=== PATIENT | female | born 1945 | race Caucasian/White ===

== ENCOUNTER → 2024-02-09 09:25 | Outpatient (BNVA) | payer OTHER, SELFPAY | PROVIDERS: PCP Nurse Practitioner Family; Visit Provider Nurse Practitioner Family ==

== ENCOUNTER → 2024-05-25 10:25 | Outpatient (BNVA) | payer OTHER, SELFPAY | PROVIDERS: PCP Nurse Practitioner Family; Visit Provider Nurse Practitioner Family | DX: E11.51 Type 2 diabetes mellitus with diabetic peripheral angiopathy without gangrene (principal); I70.209 Unspecified atherosclerosis of native arteries of extremities, unspecified extremity; E11.59 Type 2 diabetes mellitus with other circulatory complications; I15.2 Hypertension secondary to endocrine disorders; E11.69 Type 2 diabetes mellitus with other specified complication; E78.5 Hyperlipidemia, unspecified; E11.22 Type 2 diabetes mellitus with diabetic chronic kidney disease; I13.0 Hypertensive heart and chronic kidney disease with heart failure and stage 1 through stage 4 chronic kidney disease, or unspecified chronic kidney disease; N18.31 Chronic kidney disease, stage 3a; I50.22 Chronic systolic (congestive) heart failure; I25.10 Atherosclerotic heart disease of native coronary artery without angina pectoris; E11.42 Type 2 diabetes mellitus with diabetic polyneuropathy; Z79.84 Long term (current) use of oral hypoglycemic drugs; Z96.653 Presence of artificial knee joint, bilateral | CPT/HCPCS: 83036; 96127 ==

== ENCOUNTER 2024-06-09 11:32 | Outpatient (AMB) | payer OTHER, SELFPAY ==
[2024-06-09 11:40] VITALS: BP 138/72; PULSE 65; O2SAT 98; BMI 29.8
--- NOTE | 2024-06-09 11:40 | HO.NEPHOV ---
Vital Signs 06/09/24 11:40 Height 5 ft 2 in Weight 163 lb BMI 29.8 BP 138/72 Blood Pressure Location Lt brachial Position Sitting Pulse 65 Pulse Source Pulse Oximeter Pulse Oximetry (%) 98 Oxygen Delivery Method Room Air Intake Visit Reasons: INP: CKD stage 3a /History of urinary calculi Informatics Coordinator Required: No Accompanied by: Self / Same As Patient Allergies No Known Allergies Allergy (Verified 06/16/24 12:53) Do you need a note to return to daycare/school/sports/work: No HPI Comments Details: I had the privilege of seeing Viri in consultation for renal stones, CKD and hypertension. She is 78 years of age and is a diabetic with H/O CAD, peripheral neuropathy, CHF, PAD as well as proteinuria. Her last Echocardiogram showed mild concentric left ventricular hypertrophy, grade 1 mild diastolic dysfunction with impaired LV relaxation, ejection fraction 55-60% & mild mitral regurgitation. She is compliant of all of her medications. Her blood sugars are averaging around 130 mg/dL. Her last A1c was 6.6%. She denies any hyper or hypoglycemia and denies any urinary complaints. She has renal stones Her BP is close to goal . She denies any chest pain, shortness of breath and does not have any edema in bilateral lower extremities. Her last serum creatinine was 1.17 [facility] Medical History (Updated 07/19/24 @ 20:55 by Shailesh Tirado MD) Diabetes mellitus type 2 with atherosclerosis of arteries of extremities Hypertension complicating diabetes Hyperlipidemia associated with type 2 diabetes mellitus Rheumatic fever PVD (peripheral vascular disease) CKD (chronic kidney disease) stage 3, GFR 30-59 ml/min CHF (congestive heart failure) CAD (coronary artery disease) Diabetic peripheral neuropathy BMI 30.0-30.9,adult Obesity, Class I, BMI 30-34.9 Hx of renal calculi Hypertension Surgical History (Updated 06/16/24 @ 12:53 by Juju Ventura) History of knee replacement Social History (System 06/16/24 @ 12:53 by Juju Ventura) Housing: Apartment Patient Tobacco Use Status: Never used Tobacco e-Cigarette/Vaping Use: Never Used Second Hand Smoke Exposure: No service: No Current occupational status: retired Cognitive needs: No Hearing needs: No Vision needs: Yes Review of Systems Const All systems reviewed & are unremarkable except as noted in HPI and below Physical Exam Vital Signs: Last Vital Signs Pulse 65 06/09/24 11:40 BP 138/72 06/09/24 11:40 Pulse Ox 98 06/09/24 11:40 Oxygen Delivery Method Room Air 06/09/24 11:40 BMI result Body Mass Index 29.8 Const General: comfortable and no acute distress Orientation/consciousness: patient oriented x3 HEENT Head: Yes normocephalic Mouth: Normal oral and palatal mucosa present Eyes EOM: EOMs intact bilaterally Neck Neck: Yes supple Resp Auscultation: clear to auscultation bilaterally Cardio Jugular venous distension: no JVD Rate: regular rate GI Palpation (GI): Soft to palpation Auscultation: normal bowel sounds General: Yes no CVA tenderness Back/Spine/Pelvis Back: no CVA tenderness Skin General skin exam: no rashes or lesions noted Neuro General: patient oriented x3 and moves all extremities Extrem General: Yes no pedal edema Results Reviewed Nephrology Results: Sodium 142 mmol/L (135-145) 04/28/24 Potassium 4.8 mmol/L (3.3-5.1) 04/28/24 Chloride 113 mmol/L (96-108) H 04/28/24 Carbon Dioxide 22 mmol/L (22-29) 04/28/24 BUN 23 mg/dL (9-16) H 04/28/24 Creatinine 1.17 mg/dL (0.5-1.4) 04/28/24 Calcium 9.1 mg/dL (8.4-10.2) 04/28/24 Urine Creatinine 379.74 mg/dL 04/28/24 Assessment & Plan Assessment & Plan (1) Hypertension: Code(s): I10 - Essential (primary) hypertension Category: Medical Qualifiers: Hypertension type: primary hypertension Qualified Code(s): I10 - Essential (primary) hypertension (2) Hx of renal calculi: Code(s): Z87.442 - Personal history of urinary calculi Category: Medical (3) CKD (chronic kidney disease) stage 3, GFR 30-59 ml/min: Code(s): N18.30 - Chronic kidney disease, stage 3 unspecified Category: Medical Qualifiers: Chronic kidney disease stage 3 subtype: stage 3a (GFR 45-59) Qualified Code(s): N18.31 - Chronic kidney disease, stage 3a (4) PVD (peripheral vascular disease): Code(s): I73.9 - Peripheral vascular disease, unspecified Category: Medical Plan 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 She has proteinuria. She is on ACEI. She has renal calculi. Sha may need addition of low dose HCTZ which should help with her edema issues intermittently, BP as well as renal calculi. I have ordered urine studies including 24 hour urine for protein, creatinine clearance in addition to blood work and Doppler of renal arteries. She is a great candidate for SGLT 2i. Further management is pending evolving data. Answered all questions Orders: Orders Creatinine Clearance Urine 24U 3 Months Z87.442 - Personal history of urinary calculi, N18.31 - Chronic kidney disease, stage 3a, I10 - Essential (primary) hypertension Parathyroid Hormone Intact 3 Months Z87.442 - Personal history of urinary calculi, N18.31 - Chronic kidney disease, stage 3a, I10 - Essential (primary) hypertension Calcium 3 Months Z87.442 - Personal history of urinary calculi, N18.31 - Chronic kidney disease, stage 3a, I10 - Essential (primary) hypertension Vitamin D 25-OH Total 3 Months Z87.442 - Personal history of urinary calculi, N18.31 - Chronic kidney disease, stage 3a, I10 - Essential (primary) hypertension Immunofixation Pnl, Serum 3 Months Z87.442 - Personal history of urinary calculi, N18.31 - Chronic kidney disease, stage 3a, I10 - Essential (primary) hypertension Creatinine 3 Months Z87.442 - Personal history of urinary calculi, N18.31 - Chronic kidney disease, stage 3a, I10 - Essential (primary) hypertension Blood Urea Nitrogen 3 Months Z87.442 - Personal history of urinary calculi, N18.31 - Chronic kidney disease, stage 3a, I10 - Essential (primary) hypertension Electrolytes 3 Months Z87.442 - Personal history of urinary calculi, N18.31 - Chronic kidney disease, stage 3a, I10 - Essential (primary) hypertension Protein, 24 Hr Urine Group 3 Months Z87.442 - Personal history of urinary calculi, N18.31 - Chronic kidney disease, stage 3a, I10 - Essential (primary) hypertension Phosphorus 3 Months Z87.442 - Personal history of urinary calculi, N18.31 - Chronic kidney disease, stage 3a, I10 - Essential (primary) hypertension Immunofixation, Random Urine 3 Months Z87.442 - Personal history of urinary calculi, N18.31 - Chronic kidney disease, stage 3a, I10 - Essential (primary) hypertension US renal doppler 1 Month I10 - Essential (primary) hypertension, Z87.442 - Personal history of urinary calculi, N18.31 - Chronic kidney disease, stage 3a Coding Level of Care Code New Pt Level 4 (50815) Diagnoses Primary hypertension I10 Hypertension type: primary hypertension Hx of renal calculi Z87.442 Stage 3a chronic kidney disease N18.31 Chronic kidney disease stage 3 subtype: stage 3a (GFR 45-59) PVD (peripheral vascular disease) I73.9
--- OUTSIDE RECORDS SUMMARY | 2024-06-09 14:32 | XMS_ITS | Clinical Summary ---
Author Organization [facility] Address [address] [place] [phone] Phone Care Team Providers Care Bss Solution Architect Name Role Phone Se Ely Primary Care Provider [phone] Allergies No known active allergies Medications losartan (COZAAR) 25 mg tablet Take 1 tablet (25 mg total) by mouth 1 (one) time each day. 3 Active furosemide (LASIX) 40 mg tablet Take 1 tablet (40 mg total) by mouth 1 (one) time each day. 2 Active carvediloL (COREG) 6.25 mg tablet Take 1 tablet (6.25 mg total) by mouth 2 (two) times a day with meals. 2 Active finerenone (Kerendia) 10 mg tablet Take 1 tablet by mouth 1 (one) time each day. 3 Active metFORMIN (GLUCOPHAGE) 500 mg tablet Take 2 tablets (1,000 mg total) by mouth 2 (two) times a day. 2 Active blood-glucose meter kit 1 (one) time each day. to check blood sugar 3 Active lancets 30 gauge misc 1 Units by Not Applicable route 1 (one) time each day. 3 Active Active Problems Problem Noted Date Diagnosed Date Acute on chronic combined sy stolic and diastolic congestive heart failure 07/16/2021 Acute systolic heart failure 07/16/2021 CKD (chronic kidney disease) stage 3, GFR 30-59 ml/min 09/06/2020 Right knee DJD 11/18/2013 Morbid obesity 04/27/2013 Overview (04/16/2024): BMI 41.21 on 04/12/13. Type 2 diabetes mellitus with eye manifestations 01/03/2011 Overview (04/16/2024): Bilateral nuclear sclerosis. DM (diabetes mellitus) type II uncontrolled with eye manifestation Microalbuminuria 01/03/2011 Type 2 diabetes mellitus wit h diabetic nephropathy, without long-term current use of insulin 01/03/2011 Overview (04/16/2024): Peripheral neuropathy. Mixed hyperlipidemia 01/12/2010 Obesity, unspecified 03/03/2009 Duodenal ulcer due to Helicobacter pylori 2008 Overview (04/16/2024): Treated for h pylori 2003. Spinal stenosis, lumbar dom on, without neurogenic claudication 09/13/2008 Essential hypertension, benign 05/24/2005 Immunizations Name Administration Dates Next Due Influenza Quadravalent, MDCK , 0.5ml, preservative free (Flucelvax) 6mo and older 03/17/2018 Influenza Quadravalent, MDCK , 0.5ml, with preservative (Flucelvax) 6mo and older 02/27/2017 Influenza trivalent, 0.5mL ( Fluad) 65yo and older 03/01/2021,02/12/2019,01/18/2016 Influenza trivalent, 0.5mL, preservative free (Fluarix; FluLaval; Fluzone) ages 6mo and older (Afluria) 3 years and older 04/17/2015,01/11/2013,01/22/2012,03/20,01/12/2010,02/03/2007 PPD Test 04/19/2013 Pfizer SARS-CoV-2 COVID-19, mRNA, LNP-S, preservative free 08/01/2020 Pneumococcal conjugate 13 va lent (Prevnar 13, PCV13) 2mo and older 08/29/2014 Pneumococcal polysaccharide 23 valent (Pneumovax 23) 2yo and older 10/19/2015,09/13/2008 Td Tetanus diptheria (Tdvax) 7yo and older 02/12/2019 Tdap Tetanus diptheria acell ular pertussis (Boostrix; Adacel) 7yo and older 09/13/2008 Zoster Live 01/12/2010 Surgical History Surgery Date Site/Laterality Comments TUBAL LIGATION PROCEDURE: HISTORICAL TUBAL LIGATION CHOLECYSTECTOMY PROCEDURE: HISTORICAL CHOLECYSTECTOMY OTHER SURGICAL HISTORY PROCEDURE: HISTORY OTHER; COMMENT: spinalstenosis surgery dr rhoades KNEE ARTHROSCOPY 02/21/2014 Right PROCEDURE: [place] ARTHROSCOPY AID [place] SPINE&/FX KNEE W/O FIXJ; COMMENT: Herve Ruelas TOTAL KNEE ARTHROPLASTY PROCEDURE: HISTORICAL TOTAL KNEE REPLACE; COMMENT: right sergio left de COLONOSCOPY 2003 PROCEDURE: HISTORICAL COLONOSCOPY; COMMENT: neg UPPER GASTROINTESTINAL ENDOSCOPY 2003 PROCEDURE: KS UPPER GI ENDOSCOPY PERFORMED; COMMENT: duodenal ulcers and h. pylori infection; rx'd. COLONOSCOPY 2014 PROCEDURE: HISTORICAL COLONOSCOPY; COMMENT: no polyps CATARACT EXTRACTION 08/2020 Right PROCEDURE: HISTORICAL CATARACT REMOVAL BREAST BIOPSY 2014ish Right PROCEDURE: BX BREAST; PERC NEEDLE CORE W/IMAG GUID; COMMENT: rt. breast bx.-benign findings CHOLECYSTECTOMY PROCEDURE: KS LAPAROSCOPY SURG CHOLECYSTECTOMY LITHOTRIPSY 06/03/2023 PROCEDURE: HISTORICAL LITHOTRIPSY; COMMENT: laser lithotripsy, stent removal dr. castillo Medical History Medical History Date Comments Type II or unspecified type diabetes mellitus with unspecified complication, not stated as uncontrolled DX:Type II or unspecified ty pe diabetes mellitus with unspecified complication, not stated as uncontrolled Other unspecified back disorder DX:Other unspecified back disorder Duodenal ulcer due to Helico bacter pylori 09/13/2008 DX:Duodenal ulcer due to Helicobacter pylori Obesity, unspecified 03/03/2009 DX:Obesity, unspecified Unspecified essential hypertension DX:Unspecified essential hypertension Cervical spondylosis without myelopathy DX:Cervical spondylosis with out myelopathy Hyperlipidemia DX:Hyperlipidemi a Family History Medical History Relation Name Comments Cancer of Small Bowel Brother 1 Parkinson's Disease Father Alzheimer's disease Mother Blindness Neg Hx Breast cancer Neg Hx Cataracts Neg Hx Glaucoma Neg Hx Macular degeneration Neg Hx Strabismus Neg Hx Relation Name Status Comments Brother 1 overdose Brother 2 over dose Daughter 1 Alive Daughter 2 Alive Daughter 3 Alive Father (Age 82) parkinsons Mother (Age 86) ALZHEIMERS Son Alive Social History Tobacco Use Types Packs/Day Years Used Date Smoking Tobacco: Former Cigarettes 0.1 12 0 04/14/1967 - 04/14/1979 Smokeless Tobacco: Never Alcohol Use Standard Drinks/Week Comments No 0 (1 standard drink = 0.6 oz pur e alcohol) Comments Unknown Sex and Gender Information Value Date Recorded Sex Assigned at Not on file Legal Sex Female 5:07 AM EST Gender Identity Not on file Sexual Orientation Not on file Obstetrics History Last Filed Vital Signs Vital Sign Reading Time Taken Comments Blood Pressure 132/70 12/06/2022 10:56 AM EDT Pulse 70 12/06/2022 10:56 AM EDT Temperature - - Respiratory Rate - - Oxygen Saturation - - Inhaled Oxygen Concentration - - Weight 84.7 kg (186 lb 12.8 oz) 023 10:56 AM EDT Height 157.5 cm (5' 2 ) 12/06/2022 10:5 6 AM EDT Body Mass Index 34.17 12/06/2022 10:56 AM EDT Plan of Treatment Upcoming Encounters Date Type Department Care Team (Late st Contact Info) Description 12/01/2024 8:30 AM EDT Appointment Radiology Department [address] [phone] Health Maintenance Due Date Last Done Comments Diabetes: Annual Foot Exam 08/18/1955 Diabetes: Annual Retina Eye Exam 08/18/1955 Zoster Vaccines (2 of 3) 03/09/2010 01/12/2010 COVID-19 Vaccine (3 - Pfizer risk series) 08/29/2020 08/01/2020, 07/10/2020 Depression Screening 03/23/2022 Falls Risk Assessment 03/23/2022 Social Influencers of Health Screening 03/23/2022 RSV Immunization Patients 60+ Years Old (1 - 1-dose 75+ series) 08/18/2022 Diabetes: Blood Sugar Control Test (HGBA1C) 06/08/2023 12/06/2022 Diabetes: Annual Urine Albumin-Creatinine Ratio (uACR) 12/07/2023 12/06/2022 Diabetes: Annual GFR (Glomerular Filtration Rate) 12/07/2023 12/06/2022 Hypertension/CHF/CAD Annual BMP Blood Test 12/07/2023 12/06/2022 Influenza Vaccine (#1) 2023 , 02/12/2019, 03/17/2018, Additional history exists Cholesterol Screening (Lipid Panel) 12/07/2027 12/06/2022 DTaP,Tdap,and Td Vaccines (3 - Td or Tdap) 02/12/2029 02/12/2019, 09/13/2008 Osteoporosis Screening (Bone Density Screening) 11/20/2032 11/20/2022, 04/27/2020, 10/07/2017 Hepatitis C Screening Completed 04/08/2013 Pneumococcal Vaccine: 50+ Years Completed 10/19/2015, 08/29/2014, 09/13/2008 Breast Cancer Screening Discontinued 11/27/19 24, 11/27/2023, 11/20/2022, Additional history exists HIB Vaccines Aged Out No longer eligi ble based on patient's age to complete this topic HPV Vaccines Aged Out No longer eligi ble based on patient's age to complete this topic Hepatitis A Vaccines Aged Out No long er eligible based on patient's age to complete this topic Hepatitis B Vaccines Aged Out No long er eligible based on patient's age to complete this topic IPV Vaccines Aged Out No longer eligi ble based on patient's age to complete this topic MMR Vaccines Aged Out No longer eligi ble based on patient's age to complete this topic Meningococcal ACWY Vaccine Aged Out N o longer eligible based on patient's age to complete this topic Meningococcal B Vacine Aged Out No lo nger eligible based on patient's age to complete this topic RSV Immunization Patients Under 20 months Aged Out No longer eligible based on patient's age to complete this topic Varicella Vaccines Aged Out No longer eligible based on patient's age to complete this topic Procedures Procedure Name Priority Date/Time Associated Diagnosis Comments SCREENING MAMMOGRAPHY BI 2-VIEW BREAST INC CAD Routine 11/27/2023 8:08 AM EDT Encounter for screening mammogram for malignant neoplasm of breast URINE ALBUMIN CREATININE RATIO Routine 12/06/2022 ANNUAL BMP BLOOD TEST Routine 12/06/2022 HEMOGLOBIN A1C Routine 12/06/2022 LIPID PANEL Routine 12/06/2022 DXA BONE DENSITY STUDY 1+ SITS AXIAL SKEL Routine 11/20/2022 2:17 PM EDT Type 2 diabetes mellitus with diabetic nephropathy (CMS/HCC) Acute on chronic combined systolic (congestive) and diastolic (congestive) heart failure (CMS/HCC) Essential (primary) hypertension Acute systolic (congestive) heart failure (CMS/HCC) Morbid (severe) obesity due to excess calories (CMS/HCC) Mixed hyperlipidemia Duodenal ulcer, unspecified as acute or chronic, without hemorrhage or perforation Helicobacter pylori (H. pylori) as the cause of diseases classified elsewhere HEPATITIS C SCREENING Routine 04/08/2013 from Last 3 Months or Most Recently Relevant to Health Maintenance Results * SCREENING MAMMOGRAPHY BI 2-VIEW BREAST INC CAD (11/27/2023 8:08 AM EDT) Anatomical Region Laterality Modality Radiographic Giovanna ging 11/20/2022 2:45 PM EDT Narrative 11/27/2023 3:46 PM EDT This is a summary report. The complete report is available in the patient's medical record. If you cannot access the medical record, please contact the sending organization for a detailed fax or copy. Full field digital screening 2D C views and 3D tomosynthesis mammography, reviewed with CAD and compared to previous. The breasts are composed of fatty and fibroglandular tissue. ??No suspicious mass, architectural distortion or suspicious calcifications are identified. There are stable bilateral asymmetric opacities and calcifications. ??There is no new suspicious masses, microcalcifications or areas of architectural distortion. IMPRESSION: : No mammographic evidence of malignancy. BI-RADS 2, benign findings. 5 year breast cancer risk assessment 1.3 % Lifetime breast cancer risk assessment 2.7 % Breast cancer risk category Low (<15%) Procedure Note Cheryle Madrid MD - 01/28/2024 This is a summary report. The complete report is available in thepatient's medical record. If you cannot access the medical record, pleasecontact the sending organization for a detailed fax or copy. Full field digital screening 2D C views and 3D tomosynthesis mammography,reviewed with CAD and compared to previous. The breasts are composed offatty and fibroglandular tissue. No suspicious mass, architecturaldistortion or suspicious calcifications are identified. There are stable bilateral asymmetric opacities and calcifications. Thereis no new suspicious masses, microcalcifications or areas of architecturaldistortion. IMPRESSION: : No mammographic evidence of malignancy. BI-RADS 2, benign findings. 5 year breast cancer risk assessment 1.3 % Lifetime breast cancer risk assessment 2.7 % Breast cancer risk category Low (<15%) Result [facility] Se [facility] IMG XR PROCEDURES Final R esult * Urine Albumin Creatinine Ratio (12/06/2022) [facility] Urine Albumin Creatinine Ratio abstracted Result [facility] HEALTH MAINTENANCE Final Result * Annual BMP Blood Test (12/06/2022) [facility] Annual BMP Blood Test abstracted Result [facility] MAINTENANCE Final Result * (ABNORMAL) Hemoglobin A1c (12/06/2022) [facility] Hemoglobin A1C 8.1(A) <=6.5 % Blood Venous blood specimen / Unknown Result [facility] MD LAB BLOOD ORDERABLES Myra l Result * (ABNORMAL) Lipid panel (12/06/2022) [facility] LDL/HDL Ratio 5(A) 0 - 4 Triglycerides 321(A) 0 - 150 mg/dL Cholesterol 231(A) 0 - 200 mg/dL HDL 51 >=40 mg/dL LDL Cholesterol 116(A) 0 - 100 mg/dL Blood Venous blood specimen / Unknown Result [facility] Provider MD LAB BLOOD ORDERABLES Myra l Result * DXA BONE DENSITY STUDY 1+ SITS AXIAL SKEL (11/20/2022 2:17 PM EDT) Anatomical Region Laterality Modality Bone Densitometr y 06/07/2022 11:2 1 AM EST Narrative 11/20/2022 5:54 PM EDT BONE DENSITY SCAN (DEXA) ? FINDINGS: Lumbar Spine T-score is 6.0. ?? (SD relative to 20-29 y/o adult) Z-score is 8.4. ??(SD relative to age matched peers) This is considered normal by WHO criteria. Left Hip T-score is 1.2. Z-score is 3.0. This is considered normal by WHO criteria. Comparison: 04/27/2020. ??No statistically significant change in left hip bone mineral density. IMPRESSION: IMPRESSION: Normal bone mineral density by WHO criteria. [facility] Department of Internal Medicine recommends using National Osteoporosis Foundation (NOF) guidelines in treatment decisions related to osteoporosis. NOF guidelines suggest considering treatment for postmenopausal women and men aged 50 or older presenting with the following: History of hip or vertebral fracture. T-score = -2.5 (DXA) at the femoral neck, total hip, or spine, after appropriate evaluation to exclude secondary causes. Low bone mass (T-score between -1.0 and -2.5 at the femoral neck or spine) AND a 10-year probability of a hip fracture = 3% OR a 10-year probability of a major osteoporosis-related fracture = 20% based on the [place]-adapted WHO algorithm Please note that all treatment decisions require clinical judgment and consideration of individual patient factors, including patient preferences, co-morbidities, previous drug use, risk factors not captured in the FRAX model (e.g., frailty, falls, vitamin D deficiency, increased bone turnover, interval significant decline in bone density) and possible under- or over-estimation of fracture risk by FRAX. Optional alternative screening schedule based on vy Etienne., [facility], [place] May 02, 2011 for patients with osteopenia (based on hip BMD T-score) is as follows: * ??advanced osteopenia (T scores -2.00 to -2.49), BMD testing every year * ??moderate osteopenia (T scores -1.50 to -1.99), BMD testing every 5 years mild osteopenia or normal BMD (T scores -1.50 and higher), BMD testing every 15 years Procedure Note Siri Suggs MD - 05/19/2023 BONE DENSITY SCAN (DEXA) FINDINGS: Lumbar Spine T-score is 6.0. (SD relative to 20-29 y/o adult) Z-score is 8.4. (SD relative to age matched peers) This is considered normal by WHO criteria. Left Hip T-score is 1.2. Z-score is 3.0. This is considered normal by WHO criteria. Comparison: 04/27/2020. No statistically significant change in left hipbone mineral density. IMPRESSION: IMPRESSION: Normal bone mineral density by WHO criteria. [facility] Department of Internal Medicine recommendsusing National Osteoporosis Foundation (NOF) guidelines in treatment decisions related toosteoporosis. NOF guidelines suggest considering treatment for postmenopausal women and menaged 50 or older presenting with the following: History of hip or vertebral fracture. T-score = -2.5 (DXA) at the femoral neck, total hip, or spine, afterappropriate evaluation to exclude secondary causes. Low bone mass (T-score between -1.0 and -2.5 at the femoral neck or spine)AND a 10-year probability of a hip fracture = 3% OR a 10-year probability of a majorosteoporosis-related fracture = 20% based on the [place]-adapted WHO algorithm Please note that all treatment decisions require clinical judgment andconsideration of individual patient factors, including patient preferences, co- morbidities,previous drug use, risk factors not captured in the FRAX model (e.g., frailty, falls, vitaminD deficiency, increased bone turnover, interval significant decline in bone density) andpossible under- or over-estimation of fracture risk by FRAX. Optional alternative screening schedule based on vy Etienne., NEJMJanuary 2011 for patients with osteopenia (based on hip BMD T-score) is as follows: * advanced osteopenia (T scores -2.00 to -2.49), BMD testing every year * moderate osteopenia (T scores -1.50 to -1.99), BMD testing every 5years mild osteopenia or normal BMD (T scores -1.50 and higher), BMD testingevery 15 years Se [facility] DXA PROCEDURES Final Result * Hepatitis C Screening (04/08/2013) Hepatitis C Screening abstracted us Historical Provider MD HEALTH MAINTENANCE Final Result from Last 3 Months or Most Recently Relevant to Health Maintenance Care Teams Bss Solution Architect Relationship Specialty Start Date End Date Se Ely PA PCP - General Internal Medicine 09/06/20
--- OUTSIDE RECORDS SUMMARY | 2024-06-09 14:32 | XMS_ITS | Clinical Summary ---
Author Organization [facility] Facility Address [address] [place] [address] Care Team Providers Care Ocean Freight Manager Name Role Phone Unavailable Primary Care Provider Unavailabl e Allergies No known active allergies Medications metFORMIN (GLUCOPHAGE) 500 MG tablet Take 1,000 mg by mouth in the morning and 1,000 mg in the evening. Take with meals. 2 Active glyBURIDE (DIABETA) 5 MG tablet Take 5 mg by mouth in the morning and 5 mg in the evening. 2 Active atorvastatin (LIPITOR) 80 MG tablet Take 40 mg by mouth 1 (one) time each day 2 Active carvedilol (COREG) 6.25 MG tablet Take 6.25 mg by mouth in the morning and 6.25 mg in the evening. Take with meals. 2 Active furosemide (LASIX) 40 MG tablet Take 40 mg by mouth 1 (one) time each day 2 Active clobetasol (TEMOVATE) 0.05 % cream APPLY TOPICALLY TO THE AFFECTED AREA TWICE DAILY SPARINGLY NEEDED 2 Active LORazepam (ATIVAN) 0.5 MG tablet Take 0.5 mg by mouth every 8 (eight) hours if needed for anxiety Active albuterol HFA (PROVENTIL HFA;VENTOLIN HFA) 108 (90 Base) MCG/ACT inhaler Inhale 2 puffs every 6 (six) hours if needed for wheezing Active Family History Medical History Relation Comments Cancer Brother Parkinsonism Father Alzheimer's disease Mother Relation Status Comments Brother Father Mother Social History Tobacco Use Types Packs/Day Years Used Date Smoking Tobacco: Never Smokeless Tobacco: Never Tobacco Cessation:Counseling Given: No Alcohol Use Standard Drinks/Week Comments Never 0 (1 standard drink = 0.6 oz pur e alcohol) Comments Unknown Sex and Gender Information Value Date Recorded Sex Assigned at Not on file Legal Sex Female 5:26 PM EST Gender Identity Not on file Sexual Orientation Not on file Last Filed Vital Signs Vital Sign Reading Time Taken Comments Blood Pressure 144/73 11/14/2021 3:55 PM EDT Pulse 86 11/14/2021 3:55 PM EDT Temperature - - Respiratory Rate - - Oxygen Saturation - - Inhaled Oxygen Concentration - - Weight 83 kg (183 lb) 11/14/2021 3:55 PM EDT Height - - Body Mass Index - - Plan of Treatment Health Maintenance Due Date Last Done Comments Pneumococcal Vaccine: 65+ Ye ars (1 of 2 - PCV) 08/18/1951 Influenza Vaccine (#1) 2023 Hepatitis B Vaccine Aged Out No longe r eligible based on patient's age to complete this topic Insurance
== END 2024-06-09 12:15 | disposition home or self-care (01) ==
PROVIDERS: PCP Nurse Practitioner Family; Referring Provider Nurse Practitioner Family; Visit Provider Internal Medicine Nephrology
DX: I10 Essential (primary) hypertension (principal); Z87.442 Personal history of urinary calculi; N18.31 Chronic kidney disease, stage 3a; I73.9 Peripheral vascular disease, unspecified
CPT/HCPCS: 99204

== ENCOUNTER → 2024-06-09 11:32 | Outpatient (BNVA) | payer OTHER, SELFPAY | PROVIDERS: PCP Nurse Practitioner Family; Referring Provider Nurse Practitioner Family; Visit Provider Internal Medicine Nephrology ==

== ENCOUNTER 2024-07-06 08:37 | Outpatient (REF) | payer OTHER, SELFPAY ==
--- NOTE | ~2024-07-06 | US_ITS ---
CLINICAL HISTORY: I10 - Essential (primary) hypertension US renal duplex ultrasound Comparison: None Technique: Real time duplex ultrasound imaging was performed by the hide and skin colerer. Multiple aircraft sales representative static images were saved for review. Findings: Aorta: 99 cm/s. Right kidney: Main renal artery peak systolic velocities: Proximal: 107 cm/s Mid: 155 cm/s Distal: 101 cm/s Renal to aortic ratio: 1.6 RI: 0.72-0.77 Left kidney: Main renal artery peak systolic velocities: Proximal: 96 cm/s Mid: 98 cm/s Distal: 90 cm/s Renal to aortic ratio: 1.0 RI: 0.73-0.75 Bilateral renal veins patent. Right kidney 9.2 x 4.8 cm. Left kidney 9.1 x 4.1 cm. No focal abnormality or hydronephrosis. Impression: No significant velocity altering stenosis This document has been electronically signed by: Addy Goel MD on 07/06/2024 18:41:25
--- NOTE | ~2024-07-06 | US_ITS ---
CLINICAL HISTORY: I10 - Essential (primary) hypertension US renal duplex ultrasound Comparison: None Technique: Real time duplex ultrasound imaging was performed by the tab machine operator. Multiple product support representative static images were saved for review. Findings: Aorta: 99 cm/s. Right kidney: Main renal artery peak systolic velocities: Proximal: 107 cm/s Mid: 155 cm/s Distal: 101 cm/s Renal to aortic ratio: 1.6 RI: 0.72-0.77 Left kidney: Main renal artery peak systolic velocities: Proximal: 96 cm/s Mid: 98 cm/s Distal: 90 cm/s Renal to aortic ratio: 1.0 RI: 0.73-0.75 Bilateral renal veins patent. Right kidney 9.2 x 4.8 cm. Left kidney 9.1 x 4.1 cm. No focal abnormality or hydronephrosis. Impression: No significant velocity altering stenosis This document has been electronically signed by: Addy Goel MD on 07/06/2024 18:41:25
== END 2024-07-06 08:38 | disposition home or self-care (01) ==
LOC: HO.US 08:37
PROVIDERS: PCP Nurse Practitioner Family; Visit Provider Internal Medicine Nephrology
DX: I12.9 Hypertensive chronic kidney disease with stage 1 through stage 4 chronic kidney disease, or unspecified chronic kidney disease (principal); N18.31 Chronic kidney disease, stage 3a; Z87.442 Personal history of urinary calculi
CPT/HCPCS: 76775; 93975

== ENCOUNTER → 2024-07-06 08:41 | Outpatient (BNV) | payer OTHER, SELFPAY | PROVIDERS: PCP Nurse Practitioner Family; Visit Provider Radiology Diagnostic Radiology | DX: I10 Essential (primary) hypertension (principal) | CPT/HCPCS: 76770; 93975 ==

== ENCOUNTER 2024-07-28 09:42 | Outpatient (AMB) | payer OTHER, SELFPAY ==
[2024-07-28 09:45] VITALS: BP 136/68; PULSE 72; BMI 29.4
--- NOTE | 2024-07-28 09:45 | MHC.OFFVIS ---
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 Allergies No Known Allergies Allergy (Verified 06/16/24 12:53) Medication List - Last Reconciled 07/28/24 by Leon Arauz MD aspirin 81 mg PO DAILY blood sugar diagnostic (OneTouch Ultra Test strips) As directed blood sugar diagnostic (FreeStyle Lite Strips) As directed blood-glucose meter (FreeStyle Lite Meter kit) As directed carvedilol 6.25 mg PO BID fluticasone propionate 50 mcg/actuation 1 spray intranasal BID PRN lancets (FreeStyle Lancets) As directed lisinopril 20 mg PO DAILY metformin ER 1,000 mg (2 x 500 mg) PO BID 90 days rosuvastatin 20 mg PO DAILY HPI Comments Details: Viri is here for consultation regarding coronary artery disease. Previously seen at [facility] but she would like to switch here because of insurance issues. She has a history of diabetes. It seems that a prior CT scan of the chest had shown severe calcifications and echocardiogram had shown mild cardiomyopathy with LVEF of 40-45% and mild pulmonary hypertension. Then it seems that she had a follow-up echocardiogram which had shown improved LVEF. A myocardial perfusion imaging study was recommended but not pursued by patient. Overall, she states she feels fine. She has no cardiac symptoms. She lives in 2nd floor and she can go up and down without chest pain. She walks with a cane but she states that is mainly for walking fast and she can walk independently without falling. [facility] Medical History Diabetes mellitus type 2 with atherosclerosis of arteries of extremities Hypertension complicating diabetes Hyperlipidemia associated with type 2 diabetes mellitus Rheumatic fever PVD (peripheral vascular disease) CKD (chronic kidney disease) stage 3, GFR 30-59 ml/min CHF (congestive heart failure) CAD (coronary artery disease) Diabetic peripheral neuropathy BMI 30.0-30.9,adult Obesity, Class I, BMI 30-34.9 Hx of renal calculi Hypertension Surgical History History of knee replacement Social History Housing: Apartment Alcohol intake: never Patient Tobacco Use Status: Never used Tobacco e-Cigarette/Vaping Use: Never Used Second Hand Smoke Exposure: No service: No Current occupational status: retired Cognitive needs: No Hearing needs: No Vision needs: Yes Review of Systems Const Denies weakness ENT Denies dizziness Card Denies chest pain, Denies chest pain with activity, Denies syncope, Denies rapid heart rate, Denies pedal edema, Denies edema, Denies leg edema, Denies lightheadedness, Denies palpitations, Denies dyspnea, Denies dyspnea on exertion and Denies orthopnea Resp Denies cough, Denies dyspnea and Denies dyspnea on exertion GI Denies hematochezia and Denies change in stool character Musc Denies abnormal gait, Denies muscle cramps, Denies muscle weakness, Denies numbness, Denies radiating pain into limb and Denies tingling Neuro Denies abnormal gait, Denies dizziness, Denies syncope, Denies numbness, Denies tingling and Denies weakness Endo Denies palpitations Physical Exam Vital Signs: Last Vital Signs Pulse 72 07/28/24 09:45 BP 136/68 07/28/24 09:45 BMI result Body Mass Index 29.4 Const General: comfortable and no acute distress Orientation/consciousness: patient oriented x3 HEENT Other: Unremarkable Head: Yes normal to inspection Neck Neck: Yes normal visual inspection Chest Chest palpation & inspection: normal inspection of the chest Resp Auscultation: clear to auscultation bilaterally Cardio Palpation: normal PMI Heart sounds: S1 normal heart sound present, S2 normal heart sound present, no gallops, no murmurs and no rubs GI Palpation (GI): Soft to palpation Back/Spine/Pelvis Other: unremarkable Skin General skin exam: no rashes or lesions noted Neuro General: patient oriented x3 Extrem General: Yes normal to inspection Psych Mental Status: mental status grossly normal Assessment & Plan Assessment & Plan (1) CAD (coronary artery disease): Comment: . Code(s): I25.10 - Atherosclerotic heart disease of [place] coronary artery without angina pectoris Category: Medical Qualifiers: Associated angina: without angina Coronary Disease-Associated Artery/Lesion type: [place] artery [place] vs. transplanted heart: [place] heart Qualified Code(s): I25.10 - Atherosclerotic heart disease of [place] coronary artery without angina pectoris (2) Cardiomyopathy: Code(s): I42.9 - Cardiomyopathy, unspecified Category: Medical (3) Type 2 diabetes mellitus with unspecified complications: Code(s): E11.8 - Type 2 diabetes mellitus with unspecified complications Category: Medical (4) Hypertension: Code(s): I10 - Essential (primary) hypertension Category: Medical Qualifiers: Hypertension type: primary hypertension Qualified Code(s): I10 - Essential (primary) hypertension Plan Per [facility] echo 2022, LVEF 55-60%. No wall motion abnormalities. Mild mitral valve thickening/mild regurgitation. Prior to that, LVEF 40-45%. A chest CT scan had reported severe coronary calcification. Patient herself has got no overt symptoms. It appears that stress test recommended in the past but not pursued but patient. We discussed about this again today and she is now reluctantly agreeing. She has a cane to help with walking but insists that she is able to safely walk on the treadmill as she can go up 2 flights of stairs without assistance. Hence exercise stress echocardiogram is ordered. She does not want to do pharmacological nuclear study. Follow-up after the above. Orders: Orders CA echo stress exercise Today Leon Arauz MD I25.10 - Atherosclerotic heart disease of [place] coronary artery without angina pectoris, R07.2 - Precordial pain Medications: Changed From fluticasone propionate 50 mcg/actuation administer into each nostril 1 spray intranasal BID 16 grams 12RF To fluticasone propionate 50 mcg/actuation administer into each nostril 1 spray intranasal BID PRN MELISSA Burleson- Patient Instructions: - Schedule and undergo stress test as recommended. - Continue current medications for hypertension and diabetes. - Monitor for any new cardiac symptoms such as chest pain or shortness of breath. - Follow up in three months to review test results and current health status. Coding Level of Care Code New Pt Level 4 (02343) Complex EM visit Add On G2211 Diagnoses Coronary artery disease involving [place] coronary artery of [place] heart without angina pectoris I25.10 Associated angina: without angina Coronary Disease-Associated Artery/Lesion type: [place] artery [place] vs. transplanted heart: [place] heart Cardiomyopathy I42.9 Type 2 diabetes mellitus with unspecified complications E11.8 Primary hypertension I10 Hypertension type: primary hypertension
--- OUTSIDE RECORDS SUMMARY | 2024-07-28 10:50 | XMS_ITS | Clinical Summary ---
Author Organization [facility] Address [address] [place] [address] Phone Care Team Providers Care Employment Clerk Name Role Phone Se Ely Primary Care Provider [phone] Allergies No known active allergies Medications losartan [...] sy stolic and diastolic congestive heart failure (CMS/HCC V24, CMS/HCC V28) 07/16/2021 Acute systolic heart failure (CMS/HCC V24, CMS/H CC V28) 07/16/2021 CKD (chronic kidney disease) stage 3, GFR 30-59 ml/min (CMS/HCC V24, CMS/HCC V28) 09/06/2020 Right knee DJD 11/18/2013 Morbid obesity ([facility] V24, [facility] V28) 2013 Overview (04/16/2024): BMI 41.21 on 04/12/13. Type 2 diabetes mellitus wit h eye manifestations ([facility] V24, [facility] V28) 01/03/2011 Overview (04/16/2024): Bilateral nuclear sclerosis. DM (diabetes mellitus) type II uncontrolled with eye manifestation Microalbuminuria 01/03/2011 Type 2 diabetes mellitus wit h diabetic nephropathy, without long-term current use of insulin ([facility] V24, [facility] V28) 01/03/2011 Overview (04/16/2024): Peripheral neuropathy. Mixed hyperlipidemia [...] PROCEDURE: HISTORY OTHER; COMMENT: spinalstenosis surgery dr rohades KNEE ARTHROSCOPY 02/21/2014 Right PROCEDURE: DE ARTHROSCOPY AID TX SPINE&/FX KNEE W/O FIXJ; COMMENT: Herve Ruelas TOTAL KNEE ARTHROPLASTY PROCEDURE: HISTORICAL TOTAL KNEE REPLACE; COMMENT: right sergio left de COLONOSCOPY 2003 PROCEDURE: HISTORICAL COLONOSCOPY; COMMENT: neg UPPER GASTROINTESTINAL ENDOSCOPY 2003 PROCEDURE: DE UPPER GI ENDOSCOPY PERFORMED; COMMENT: duodenal ulcers and h. pylori infection; rx'd. COLONOSCOPY 2014 PROCEDURE: HISTORICAL COLONOSCOPY; COMMENT: no polyps CATARACT EXTRACTION 08/2020 Right PROCEDURE: HISTORICAL CATARACT REMOVAL BREAST BIOPSY 2015ish Right PROCEDURE: BX BREAST; PERC NEEDLE CORE W/IMAG GUID; COMMENT: rt. breast bx.-benign findings CHOLECYSTECTOMY PROCEDURE: DE LAPAROSCOPY SURG CHOLECYSTECTOMY LITHOTRIPSY 06/03/2023 PROCEDURE: HISTORICAL LITHOTRIPSY; COMMENT: laser lithotripsy, stent removal dr. castillo Medical History Medical History Date Comments Type II or unspecified type diabetes mellitus with unspecified complication, not stated as uncontrolled DX:Type II or unspecified ty vale diabetes mellitus with unspecified complication, not stated [...] 8:30 AM EDT Appointment Radiology Department [address] [address] Health Maintenance Due Date Last Done Comments Diabetes: Annual Foot Exam 08/18/1955 Diabetes: Annual Retina Eye Exam 08/18/1955 Zoster Vaccines (2 of 3) 03/09/2010 01/12/2010 COVID-19 Vaccine (3 - Pfizer risk series) 08/29/2020 08/01/2020, 07/10/2020 Depression Screening 03/23/2022 Falls Risk Assessment 03/23/2022 Social Influencers of Health Screening 03/23/2022 RSV Immunization Adult Patients (1 - 1-dose 75+ series) 08/18/2022 Diabetes: Blood Sugar Control Test (HGBA1C) 06/08/2023 12/06/2022 Diabetes: Annual Urine Albumin-Creatinine Ratio (uACR) 12/07/2023 12/06/2022 Diabetes: Annual GFR (Glomerular Filtration Rate) 12/07/2023 12/06/2022 Hypertension/CHF/CAD Annual BMP Blood Test 12/07/2023 12/06/2022 Influenza Vaccine (Season Ended) 2024 03/01/2021, 02/12/2019, 03/17/2018, Additional history exists Cholesterol Screening [...] age to complete this topic Meningococcal B Vaccine Aged Out No l onger eligible based on patient's age to complete [...] Type 2 diabetes mellitus with diabetic nephropathy (CMS/HCC V24, CMS/HCC V28) Acute on chronic combined systolic (congestive) and diastolic (congestive) heart failure (CMS/HCC V24, CMS/HCC V28) Essential (primary) hypertension Acute systolic (congestive) heart failure (CMS/HCC V24, CMS/HCC V28) Morbid (severe) obesity due to excess calories (CMS/HCC V24, CMS/HCC V28) Mixed hyperlipidemia Duodenal ulcer, unspecified as acute [...] Breast cancer risk category Low (<15%) Result [facility] Se GANNON IMG XR PROCEDURES Final R esult * Urine Albumin Creatinine Ratio (12/06/2022) [facility] Urine Albumin Creatinine Ratio abstracted Result [facility] Provider HEALTH MAINTENANCE Final Result * Annual BMP Blood Test (12/06/2022) [facility] Annual BMP Blood Test abstracted Result [facility] Provider HEALTH MAINTENANCE Final Result * (ABNORMAL) Hemoglobin A1c (12/06/2022) [facility] Hemoglobin A1C 8.1(A) <=6.5 % Blood Venous blood specimen / Unknown Result [facility] Provider LAB BLOOD ORDERABLES Myra l Result * (ABNORMAL) Lipid panel (12/06/2022) [facility] LDL/HDL Ratio 5(A) 0 - 4 Triglycerides 321(A) 0 - 150 mg/dL Cholesterol 231(A) 0 - 200 mg/dL HDL 51 >=40 mg/dL LDL Cholesterol 116(A) 0 - 100 mg/dL Blood Venous blood specimen / Unknown Result [facility] Provider LAB BLOOD ORDERABLES Myra l Result * [...] alternative screening schedule based on vy Etienne., [facility] May 02, 2011 for patients with osteopenia [...] alternative screening schedule based on vy Etienne., [facility] for patients with osteopenia (based on hip BMD T-score) is as follows: * advanced osteopenia (T scores -2.00 to -2.49), BMD testing every year * moderate osteopenia (T scores -1.50 to -1.99), BMD testing every 5years mild osteopenia or normal BMD (T scores -1.50 and higher), BMD testingevery 15 years Se GANNON IMG DXA PROCEDURES Final Result * Hepatitis C Screening (04/08/2013) Pathologist [facility] Hepatitis C Screening abstracted Historical Provider MD HEALTH MAINTENANCE Final Result from Last 3 Months or Most Recently Relevant to Health Maintenance Care Teams Employment Clerk Relationship Specialty Start Date End Date Se Ely PA PCP - General Internal Medicine 09/06/20
--- OUTSIDE RECORDS SUMMARY | 2024-07-28 10:50 | XMS_ITS | Clinical Summary ---
Author Organization [facility] Facility Address [address] [place] [address] Care Team Providers Care Hand Drawer In Name Role Phone Unavailable Primary Care Provider [...] Due Date Last Done Comments Pneumococcal Vaccine: 50+ Ye ars (1 of 2 - PCV) 08/18/1964 Influenza Vaccine (Season Ended) 2024 Hepatitis B Vaccine Aged Out No longe r eligible based on patient's age to complete this topic Insurance
== END 2024-07-28 10:09 | disposition home or self-care (01) ==
PROVIDERS: PCP Nurse Practitioner Family; Visit Provider Internal Medicine
DX: I25.10 Atherosclerotic heart disease of native coronary artery without angina pectoris (principal); I42.9 Cardiomyopathy, unspecified; E11.8 Type 2 diabetes mellitus with unspecified complications; I10 Essential (primary) hypertension
CPT/HCPCS: 99204

== ENCOUNTER → 2024-07-28 09:42 | Outpatient (BNVA) | payer OTHER, SELFPAY | PROVIDERS: PCP Nurse Practitioner Family; Visit Provider Internal Medicine ==

== ENCOUNTER 2024-09-07 11:08 | Outpatient (REF) | payer OTHER, SELFPAY ==
--- OUTSIDE RECORDS SUMMARY | 2024-09-07 11:57 | XMS_ITS | Clinical Summary ---
Author Organization [facility] Facility Address [address] [place] [address] Care Team Providers Care Panelbeater Name Role Phone Unavailable Primary Care Provider [...]
[2024-09-07 14:40] LABS: Anion Gap 15 (12-20); Blood Urea Nitrogen 29 mg/dL (9-16); Calcium 9.3 mg/dL (8.4-10.2); Carbon Dioxide 24 mmol/L (22-29); Chloride 108 mmol/L (96-108); Estimated Glomerular Filt Rate 47; Phosphorus 3.2 mg/dL (2.7-4.5); Potassium 4.1 mmol/L (3.3-5.1); Sodium 143 mmol/L (135-145)
[2024-09-07 14:56] LABS: Vitamin D 25-OH Total 36.9 ng/mL (>30)
[2024-09-07 15:10] LABS: Parathyroid Hormone Intact 97.8 pg/mL (8.7-77.1)
[2024-09-09 07:33] LABS: IgA 304 mg/dL (70-320); IgG 849 mg/dL (600-1540); IgM 48 mg/dL (50-300)
== END 2024-09-07 11:09 | disposition home or self-care (01) ==
LOC: HO.WFDLDS 11:08
PROVIDERS: Visit Provider Internal Medicine Nephrology
DX: I10 Essential (primary) hypertension (principal); N18.31 Chronic kidney disease, stage 3a; Z87.442 Personal history of urinary calculi
CPT/HCPCS: 36415; 80051; 82306; 82310; 82565; 82784; 83970; 84100; 84520; 86334

== ENCOUNTER 2024-09-08 10:16 | Outpatient (AMB) | payer OTHER, SELFPAY ==
[2024-09-08 10:24] VITALS: BP 160/72; PULSE 69; O2SAT 99; BMI 30.4
--- NOTE | 2024-09-08 10:24 | HO.NEPHOV ---
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 She is 79 years of age and is a diabetic with H/O CAD, peripheral neuropathy, CHF, PAD as well as proteinuria. Her last Echocardiogram showed mild concentric left ventricular hypertrophy, grade 1 mild diastolic dysfunction with impaired LV relaxation, ejection fraction 55-60% & mild mitral regurgitation. She is compliant of all of her medications. Her blood sugars are averaging around 130 mg/dL. Her last A1c was 6.6%. She denies any hyper or hypoglycemia and denies any urinary complaints. She has renal stones Her BP is close to goal . She denies any chest pain, shortness of breath and does not have any edema in bilateral lower extremities. Her last serum creatinine was 1.13 [facility] Medical History (Updated 07/28/24 @ 11:18 by Leon Arauz MD) Diabetes mellitus type 2 with atherosclerosis of arteries of extremities Hypertension complicating diabetes Hyperlipidemia associated with type 2 diabetes mellitus Rheumatic fever PVD (peripheral vascular disease) CKD (chronic kidney disease) stage 3, GFR 30-59 ml/min CHF (congestive heart failure) CAD (coronary artery disease) Diabetic peripheral neuropathy BMI 30.0-30.9,adult Obesity, Class I, BMI 30-34.9 Hx of renal calculi Hypertension Surgical History History of colonoscopy (~01/30/15) History of knee replacement Social History Housing: Apartment Alcohol intake: never Patient Tobacco Use Status: Never used Tobacco e-Cigarette/Vaping Use: Never Used Second Hand Smoke Exposure: No service: No Current occupational status: retired Cognitive needs: No Hearing needs: No Vision needs: Yes Review of Systems Const All systems reviewed & are unremarkable except as noted in HPI and below Physical Exam Vital Signs: Last Vital Signs Pulse 69 09/08/24 10:24 BP 160/72 H 09/08/24 10:24 Pulse Ox 99 09/08/24 10:24 Oxygen Delivery Method Room Air 09/08/24 10:24 BMI result Body Mass Index 30.4 Const General: comfortable and no acute distress Orientation/consciousness: patient oriented x3 HEENT Head: Yes normocephalic Mouth: Normal oral and palatal mucosa present Eyes EOM: EOMs intact bilaterally Neck Neck: Yes supple Resp Auscultation: clear to auscultation bilaterally Cardio Jugular venous distension: no JVD Rate: regular rate GI Palpation (GI): Soft to palpation Auscultation: normal bowel sounds General: Yes no CVA tenderness Back/Spine/Pelvis Back: no CVA tenderness Skin General skin exam: no rashes or lesions noted Neuro General: patient oriented x3 and moves all extremities Extrem General: Yes no pedal edema Results Reviewed Nephrology Results: Sodium 143 mmol/L (135-145) 09/07/24 Potassium 4.1 mmol/L (3.3-5.1) 09/07/24 Chloride 108 mmol/L (96-108) 09/07/24 Carbon Dioxide 24 mmol/L (22-29) 09/07/24 BUN 29 mg/dL (9-16) H 09/07/24 Creatinine 1.13 mg/dL (0.5-1.4) 09/07/24 Calcium 9.3 mg/dL (8.4-10.2) 09/07/24 Phosphorus 3.2 mg/dL (2.7-4.5) 09/07/24 PTH Intact 97.8 pg/mL (8.7-77.1) H 09/07/24 Urine Creatinine 379.74 mg/dL 04/28/24 Renal US 07/06/24 Assessment & Plan Assessment & Plan (1) Hypertension: Code(s): I10 - Essential (primary) hypertension Category: Medical Qualifiers: Hypertension type: primary hypertension Qualified Code(s): I10 - Essential (primary) hypertension (2) Hx of renal calculi: Code(s): Z87.442 - Personal history of urinary calculi Category: Medical (3) CKD (chronic kidney disease) stage 3, GFR 30-59 ml/min: Code(s): N18.30 - Chronic kidney disease, stage 3 unspecified Category: Medical Qualifiers: Chronic kidney disease stage 3 subtype: stage 3a (GFR 45-59) Qualified Code(s): N18.31 - Chronic kidney disease, stage 3a Estella Meredith 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 She has proteinuria. She is on ACEI. She has renal calculi. Sha may need addition of low dose HCTZ which should help with her edema issues intermittently, BP as well as renal calculi. I have ordered urine studies including 24 hour urine for protein, creatinine clearance. Her Doppler of renal arteries was WNL. She is a great candidate for SGLT 2i @ next visit . Further management is pending evolving data. Answered all questions Orders: Orders Creatinine 6 Months I10 - Essential (primary) hypertension Blood Urea Nitrogen 6 Months I10 - Essential (primary) hypertension Electrolytes 6 Months I10 - Essential (primary) hypertension Coding Level of Care Code Est Pt Level 4 (01595) Diagnoses Primary hypertension I10 Hypertension type: primary hypertension Hx of renal calculi Z87.442 Stage 3a chronic kidney disease N18.31 Chronic kidney disease stage 3 subtype: stage 3a (GFR 45-59)
--- OUTSIDE RECORDS SUMMARY | 2024-09-08 11:15 | XMS_ITS | Clinical Summary ---
Author Organization [facility] Facility Address [address] [place] [id number] Care Team Providers Care Advanced Clinical Specialist Name Role Phone Unavailable Primary Care Provider [...]
== END 2024-09-08 10:48 | disposition home or self-care (01) ==
LOC: HO.HKA 10:17
PROVIDERS: PCP Nurse Practitioner Family; Visit Provider Internal Medicine Nephrology
DX: I10 Essential (primary) hypertension (principal); Z87.442 Personal history of urinary calculi; N18.31 Chronic kidney disease, stage 3a
CPT/HCPCS: 99214

== ENCOUNTER → 2024-09-10 10:57 | Outpatient (REF) | payer OTHER, SELFPAY ==
--- NOTE | 2024-09-10 10:59 | CA_ITS ---
Acquisition Time: 2024-09-10 11:30:52 Total Exercise Time: 00:05:16 Test Indications: CP Medications: ASA CARVEDILOL FLONASE LISINOPRIL METFORMIN ROSUVASTATIN Protocol: LETI Max HR: 148 BPM 103% of Pred: 143 BPM Max BP: 170/88 mmHG Max Work Load: 5.1 METS Exercise stress test with exercise 5 mins 16 secs of Leti Protocol, achieving 99% MPHr, with reports of SOB, no chest pain, with frequent PACs and PVCs, atrial couplets, with normotensive response to exercise. Without EKG changes meeting criteria for ischemia. In recovery, breathing returned to baseline. Echo images obtained by tech at rest and post peak exercise. Definity contrast utilized. Test reviewed with Dr. Moreno. Referred By: Leon Arauz Electronically Signed By: Serge Holloway
--- OUTSIDE RECORDS SUMMARY | 2024-09-10 11:47 | XMS_ITS | Clinical Summary ---
Author Organization [facility] Facility Address [address] [place] [id number] Care Team Providers Care Tipple Tender Name Role Phone Unavailable Primary Care Provider [...]
== END ==
LOC: HO.CARD 10:57
PROVIDERS: PCP Nurse Practitioner Family; Visit Provider Internal Medicine
DX: R07.2 Precordial pain (principal); I25.10 Atherosclerotic heart disease of native coronary artery without angina pectoris
CPT/HCPCS: 93350; Q9957

== ENCOUNTER → 2024-09-10 10:59 | Outpatient (BNV) | payer OTHER, SELFPAY | PROVIDERS: PCP Nurse Practitioner Family | DX: R07.9 Chest pain, unspecified (principal); I51.89 Other ill-defined heart diseases; R06.02 Shortness of breath; I49.1 Atrial premature depolarization; I49.3 Ventricular premature depolarization | CPT/HCPCS: 93016; 93018; 93350; 93352 ==

== ENCOUNTER 2024-09-13 14:21 | Outpatient (REF) | payer OTHER, SELFPAY ==
[2024-09-13 14:56] LABS: Creatinine, mg/dL 64.69; Protein mg/dL 12 mg/dL
--- OUTSIDE RECORDS SUMMARY | 2024-09-13 15:37 | XMS_ITS | Clinical Summary ---
Author Organization [facility] Facility Address [address] [place] [address] Care Team Providers Care Aircraft Maintenance Engineer Name Role Phone Unavailable Primary Care Provider [...]
[2024-09-13 19:34] LABS: Creatinine, 24Hr Urine 0.6 G/Day (1.0-2.0); Protein 24 Hr Urine 117 mg/Day (<150); Total Volume 24 Hour Urine 975 mL
[2024-09-15 07:34] LABS: Creatinine, 24Hr Urine 0.6 G/Day (1.0-2.0); Total Volume 24 Hour Urine 975 mL
[2024-09-15 07:35] LABS: Creatinine Clearance 36.1 mL/min (85-125)
== END 2024-09-13 14:22 | disposition home or self-care (01) ==
LOC: HO.LNP 14:21
PROVIDERS: Visit Provider Internal Medicine Nephrology
DX: N18.31 Chronic kidney disease, stage 3a (principal); Z87.442 Personal history of urinary calculi; I10 Essential (primary) hypertension
CPT/HCPCS: 82575; 84156

== ENCOUNTER 2024-09-14 09:26 | Outpatient (REF) | payer OTHER, SELFPAY ==
--- OUTSIDE RECORDS SUMMARY | 2024-09-14 10:30 | XMS_ITS | Clinical Summary ---
Author Organization [facility] Facility Address [address] [place] [address] Care Team Providers Care Post Form Remover Name Role Phone Unavailable Primary Care Provider [...]
[2024-09-14 15:33] LABS: Creatinine Urine 81.02 mg/dL; Microalbum/Creatinine Ratio Ur 34.5 ug/mg cr (<30)
[2024-09-14 15:34] LABS: Estimated Glomerular Filt Rate 44
== END 2024-09-14 09:27 | disposition home or self-care (01) ==
LOC: HO.WFDLDS 09:26
PROVIDERS: Internal Medicine Nephrology; Visit Provider Nurse Practitioner Family
DX: Z87.442 Personal history of urinary calculi (principal); N18.31 Chronic kidney disease, stage 3a; I10 Essential (primary) hypertension; I25.10 Atherosclerotic heart disease of native coronary artery without angina pectoris; I50.22 Chronic systolic (congestive) heart failure; E11.51 Type 2 diabetes mellitus with diabetic peripheral angiopathy without gangrene; E11.42 Type 2 diabetes mellitus with diabetic polyneuropathy; E11.69 Type 2 diabetes mellitus with other specified complication; E78.5 Hyperlipidemia, unspecified; E11.59 Type 2 diabetes mellitus with other circulatory complications; I15.2 Hypertension secondary to endocrine disorders; I73.9 Peripheral vascular disease, unspecified
CPT/HCPCS: 36415; 82043; 82565; 82570; 86335

== ENCOUNTER 2024-11-01 13:32 | Outpatient (AMB) | payer OTHER, SELFPAY ==
[2024-11-01 13:37] VITALS: BP 140/68; PULSE 56; BMI 29.8
--- NOTE | 2024-11-01 13:37 | A.OFFVIS_ITS ---
Vital Signs 11/01/24 13:37 Height 5 ft 2 in Weight 163 lb 2.273 oz BMI 29.8 BP 140/68 H Blood Pressure Location Lt brachial Position Sitting Pulse 56 Pulse Source Pulse Oximeter Intake Visit Reasons: 3 mth s/p stress echo Allergies No Known Allergies Allergy (Verified 09/08/24 10:27) Medication List - Last Reconciled 11/01/24 by Leon Arauz MD blood sugar diagnostic (OneTouch Ultra Test strips) As directed blood sugar diagnostic (FreeStyle Lite Strips) once daily blood-glucose meter (FreeStyle Lite Meter kit) once daily carvedilol 6.25 mg PO BID fluticasone propionate 50 mcg/actuation 1 spray intranasal BID PRN lancets (FreeStyle Lancets) once daily lisinopril 20 mg PO DAILY metformin ER 1,000 mg (2 x 500 mg) PO BID 90 days rosuvastatin 20 mg PO DAILY HPI Comments Details: Viri returns for follow-up regarding coronary artery disease. Previously seen at [facility] but she would like to switch here because of insurance issues. She has a history of diabetes. It seems that a prior CT scan of the chest had shown severe calcifications and echocardiogram had shown mild cardiomyopathy with LVEF of 40-45% and mild pulmonary hypertension. Then it seems that she had a follow- up echocardiogram which had shown improved LVEF. A myocardial perfusion imaging study was recommended in the past but not pursued by patient then. After the reason clinic visit, she underwent an exercise stress echocardiogram which was unremarkable. Currently, she states she feels well. No cardiac symptoms. She lives in 2nd floor and she can go up and down without chest pain. She walks with a cane but she states that is mainly for walking fast and she can walk independently without falling. [facility] Medical History (Updated 07/28/24 @ 11:18 by Leon Arauz MD) Diabetes mellitus type 2 with atherosclerosis of arteries of extremities Hypertension complicating diabetes Hyperlipidemia associated with type 2 diabetes mellitus Rheumatic fever PVD (peripheral vascular disease) CKD (chronic kidney disease) stage 3, GFR 30-59 ml/min CHF (congestive heart failure) CAD (coronary artery disease) Diabetic peripheral neuropathy BMI 30.0-30.9,adult Obesity, Class I, BMI 30-34.9 Hx of renal calculi Hypertension Surgical History History of colonoscopy (~01/30/15) History of knee replacement Social History Housing: Apartment Alcohol intake: never Patient Tobacco Use Status: Never used Tobacco e-Cigarette/Vaping Use: Never Used Second Hand Smoke Exposure: No service: No Current occupational status: retired Cognitive needs: No Hearing needs: No Vision needs: Yes Review of Systems Const Denies weakness ENT Denies dizziness Card Denies chest pain, Denies chest pain with activity, Denies syncope, Denies rapid heart rate, Denies pedal edema, Denies edema, Denies leg edema, Denies lightheadedness, Denies palpitations, Denies dyspnea, Denies dyspnea on exertion and Denies orthopnea Resp Denies cough, Denies dyspnea and Denies dyspnea on exertion GI Denies hematochezia and Denies change in stool character Musc Denies abnormal gait, Denies muscle cramps, Denies muscle weakness, Denies numbness, Denies radiating pain into limb and Denies tingling Neuro Denies abnormal gait, Denies dizziness, Denies syncope, Denies numbness, Denies tingling and Denies weakness Endo Denies palpitations Physical Exam Vital Signs: Last Vital Signs Pulse 56 11/01/24 13:37 BP 140/68 H 11/01/24 13:37 BMI result Body Mass Index 29.8 Const General: comfortable and no acute distress Orientation/consciousness: patient oriented x3 HEENT Other: Unremarkable Head: Yes normal to inspection Neck Neck: Yes normal visual inspection Chest Chest palpation & inspection: normal inspection of the chest Resp Auscultation: clear to auscultation bilaterally Cardio Palpation: normal PMI Heart sounds: S1 normal heart sound present, S2 normal heart sound present, no gallops, no murmurs and no rubs GI Palpation (GI): Soft to palpation Back/Spine/Pelvis Other: unremarkable Skin General skin exam: no rashes or lesions noted Neuro General: patient oriented x3 Extrem General: Yes normal to inspection Psych Mental Status: mental status grossly normal Assessment & Plan Assessment & Plan (1) CAD (coronary artery disease): Comment: . Code(s): I25.10 - Atherosclerotic heart disease of [place] coronary artery without angina pectoris Category: Medical Qualifiers: Associated angina: without angina Coronary Disease-Associated Artery/Lesion type: [place] artery [place] vs. transplanted heart: [place] heart Qualified Code(s): I25.10 - Atherosclerotic heart disease of [place] coronary artery without angina pectoris (2) Cardiomyopathy: Code(s): I42.9 - Cardiomyopathy, unspecified Category: Medical (3) Type 2 diabetes mellitus with unspecified complications: Code(s): E11.8 - Type 2 diabetes mellitus with unspecified complications Category: Medical (4) Hypertension: Code(s): I10 - Essential (primary) hypertension Category: Medical Qualifiers: Hypertension type: primary hypertension Qualified Code(s): I10 - Essential (primary) hypertension Plan Per [facility] echo 2022, LVEF 55-60%. No wall motion abnormalities. Mild mitral valve thickening/mild regurgitation. Prior to that, LVEF 40-45%. Echocardiogram from [place], 09/2023-LVEF 45-50%. A chest CT scan had reported severe coronary calcification. Exercise stress echocardiogram from 08/2024- 5.1 METS exercise capacity, reached target heart rate, no echocardiographic evidence of ischemia. Overall, mild cardiomyopathy, coronary disease on CT scan, but no ischemia on stress testing, clinically no symptoms. Mainly risk factor modification. Management of hypertension/diabetes. Statins for dyslipidemia. Advised her to contact us with any concerning symptoms. Discussion Notes I discussed with the patient the results of her stress echocardiogram, which were normal, and reassured her regarding her cardiovascular status. We talked about the potential benefits of starting a baby aspirin regimen as a preventative measure, provided there are no contraindications such as bleeding issues. I advised her to contact us if she experiences any new symptoms, such as chest pain or pressure. Patient was informed and verbally consented to the use of an ambient scribe for clinic note documentation during this visit. Coding Level of Care Code Est Pt Level 4 (35784) Diagnoses Coronary artery disease involving [place] coronary artery of [place] heart without angina pectoris I25.10 Associated angina: without angina Coronary Disease-Associated Artery/Lesion type: [place] artery [place] vs. transplanted heart: [place] heart Cardiomyopathy I42.9 Type 2 diabetes mellitus with unspecified complications E11.8 Primary hypertension I10 Hypertension type: primary hypertension
--- OUTSIDE RECORDS SUMMARY | 2024-11-01 14:19 | XMS_ITS | Clinical Summary ---
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 Type 2 diabetes mellitus wit h eye manifestations ([facility] V24, [facility] V28) 01/03/2011 Overview (04/16/2024): Bilateral nuclear sclerosis. DM (diabetes mellitus) type II uncontrolled with eye manifestation Microalbuminuria 01/03/2011 Type 2 diabetes mellitus wit h diabetic nephropathy, without long-term current use of insulin ([facility] V24, [facility] V28) 01/03/2011 Overview (04/16/2024): Peripheral neuropathy. Mixed [...] dr rhoades KNEE ARTHROSCOPY 02/21/2014 Right PROCEDURE: RI ARTHROSCOPY AID TX SPINE&/FX KNEE W/O FIXJ; COMMENT: Herve Ruelas TOTAL KNEE ARTHROPLASTY PROCEDURE: HISTORICAL TOTAL KNEE REPLACE; COMMENT: right sergio left de COLONOSCOPY 2003 PROCEDURE: HISTORICAL COLONOSCOPY; COMMENT: neg UPPER GASTROINTESTINAL ENDOSCOPY 2003 PROCEDURE: RI UPPER GI ENDOSCOPY PERFORMED; COMMENT: duodenal ulcers and h. pylori infection; rx'd. COLONOSCOPY 2014 PROCEDURE: HISTORICAL COLONOSCOPY; COMMENT: no polyps CATARACT EXTRACTION 08/2020 Right PROCEDURE: HISTORICAL CATARACT REMOVAL BREAST BIOPSY 2015ish Right PROCEDURE: BX BREAST; PERC NEEDLE CORE W/IMAG GUID; COMMENT: rt. breast bx.-benign findings CHOLECYSTECTOMY PROCEDURE: RI LAPAROSCOPY SURG CHOLECYSTECTOMY LITHOTRIPSY 06/03/2023 PROCEDURE: HISTORICAL [...] 12/01/2024 8:30 AM EDT Appointment Radiology Department [address] [address] Health Maintenance Due Date Last Done Comments Diabetes: Annual Foot Exam 08/18/1955 Diabetes: Annual Retina Eye Exam 08/18/1955 Zoster Vaccines (1 of 2) 03/09/2010 01/12/2010 COVID-19 Vaccine (3 - Pfizer risk series) 08/29/2020 08/01/2020, 07/10/2020 Falls Risk Assessment 03/23/2022 Social Influencers of Health Screening 03/23/2022 RSV Immunization Adult Patients (1 - 1-dose 75+ series) 08/18/2022 Diabetes: Blood Sugar Control Test (HGBA1C) 06/08/2023 12/06/2022 Diabetes: Annual Urine Albumin-Creatinine Ratio (uACR) 12/07/2023 12/06/2022 Diabetes: Annual GFR (Glomerular Filtration Rate) 12/07/2023 12/06/2022 Hypertension/CHF/CAD Annual BMP Blood Test 12/07/2023 12/06/2022 Depression Screening 04/14/2024 Influenza Vaccine (#1) 2024 , 02/12/2019, 03/17/2018, Additional history exists Cholesterol [...] are composed of fatty and fibroglandular tissue. No suspicious mass, architectural distortion or suspicious calcifications are identified. There are stable bilateral asymmetric opacities and calcifications. There is no new suspicious masses, microcalcifications or [...] Breast cancer risk category Low (<15%) Result [facility] Se [facility] IMG XR PROCEDURES Final R esult * Urine Albumin Creatinine Ratio (12/06/2022) Pathologist [facility] Urine Albumin Creatinine Ratio abstracted Result [facility] Final Result * Annual BMP Blood Test (12/06/2022) [facility] Annual BMP Blood Test abstracted Result [facility] Final Result * (ABNORMAL) Hemoglobin A1c (12/06/2022) [facility] Hemoglobin A1C 8.1(A) <=6.5 % Blood Venous blood specimen / Unknown Result [facility] LAB BLOOD ORDERABLES Myar l Result * (ABNORMAL) Lipid panel (12/06/2022) [facility] LDL/HDL Ratio 5(A) 0 - 4 Triglycerides 321(A) 0 - 150 mg/dL Cholesterol 231(A) 0 - 200 mg/dL HDL 51 >=40 mg/dL LDL Cholesterol 116(A) 0 - 100 mg/dL Blood Venous blood specimen / Unknown us Historical Provider LAB BLOOD ORDERABLES Myra barnes Result * DXA BONE DENSITY STUDY 1+ SITS AXIAL SKEL (11/20/2022 2:17 PM EDT) Anatomical Region Laterality Modality Bone Densitometr y 06/07/2022 11:2 1 AM EST Narrative 11/20/2022 5:54 PM EDT BONE DENSITY SCAN (DEXA) FINDINGS: Lumbar Spine T-score is 6.0. (SD relative to 20-29 y/o adult) Z-score is 8.4. (SD relative to age matched peers) This is considered normal by WHO criteria. Left Hip T-score is 1.2. Z-score is 3.0. This is considered normal by WHO criteria. Comparison: 04/27/2020. No statistically significant change in left hip bone mineral density. IMPRESSION: IMPRESSION: Normal bone mineral density by WHO criteria. [facility] Department of Internal Medicine recommends using National [...] alternative screening schedule based on vy Etienne., [facility] May 02, 2011 for patients with osteopenia [...] bone mineral density by WHO criteria. 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
--- OUTSIDE RECORDS SUMMARY | 2024-11-01 14:19 | XMS_ITS | Clinical Summary ---
Author Organization [facility] Facility Address [address] [place] [id number] Care Team Providers Care Outdoor Adventure Guides Name Role Phone Unavailable Primary Care Provider [...] Pneumococcal Vaccine: 50+ Ye ars (1 of 1 - PCV) 08/18/1997 Influenza Vaccine (#1) 2024 Hepatitis B Vaccine Aged Out No longe r eligible based on patient's age to complete this topic Insurance
== END 2024-11-01 14:35 | disposition home or self-care (01) ==
LOC: HO.HCS 13:33
PROVIDERS: PCP Nurse Practitioner Family; Visit Provider Internal Medicine
DX: I25.10 Atherosclerotic heart disease of native coronary artery without angina pectoris (principal); I42.9 Cardiomyopathy, unspecified; E11.8 Type 2 diabetes mellitus with unspecified complications; I10 Essential (primary) hypertension
CPT/HCPCS: 99214

== ENCOUNTER 2024-11-24 08:09 | Outpatient (AMB) | payer OTHER, SELFPAY ==
--- NOTE | 2024-11-24 08:11 | A.OFFVIS_ITS ---
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 Required: No Allergies No Known Allergies Allergy (Verified 11/24/24 08:29) Medication List - Last Reconciled 11/24/24 by HOLDEN BurlesonP- blood sugar diagnostic (OneTouch Ultra Test strips) As directed blood sugar diagnostic (FreeStyle Lite Strips) once daily blood-glucose meter (FreeStyle Lite Meter kit) once daily carvedilol 6.25 mg PO BID fluticasone propionate 50 mcg/actuation 1 spray intranasal BID PRN lancets (FreeStyle Lancets) once daily lisinopril 20 mg PO DAILY metformin ER 1,000 mg (2 x 500 mg) PO BID 90 days rosuvastatin 20 mg PO DAILY Do you need a note to return to daycare/school/sports/work: No HPI HPI Comments History of Present Illness Details Here today for AWV. The Medicare Annual Wellness Visit (AWV) is a yearly appointment with a health professional to identify health risks and help reduce them and to create or update a personalized prevention plan. During a Medicare AWV, health professionals should also review any current opioid prescriptions, detect any cognitive impairment, and establish or update medical and family history. 79 y/o F renal stones, BLE edema, obesit y, HTN, DM2, Rheumatic fever in childhood, HLD, OA, Urinary incont, glaucoma, ckd 3a, CAD WITH SEVERE CALC IFICATIONS OF CHEST, CHF, pulmonary hypertension, peripheral neuropathy SurgHx: s/p TKR 2012 bilat, s/p bilat cataract extraction 05/2024 FHx: Y SocHx Y Health Maintenance: See scanned preventative medicine assessment with personalized health plan and screening schedule. Colon reports done 2020 Mammo 11/2023, will get done at [facility] [facility] DEXA: ordered today PAP: Aged out Vaccines: UTD AAA screen: NA EKG: na active w Cards [place] of Care: Cards [facility] Cards Ophthalmology Renal Visual Acuity: Glasses, last exam July 2024 Hearing Screening: No concerns ACP: Does not have HCP or MOLST. Forms provided today along w/ education Dietary/Nutrition/Exercise Edu provided: Y During the course of the visit the patient was educated and counseled about appropriate screening and preventative services. Patient instructions were provided to the patient in written or electronic format. I have reviewed and verified the above information. She is tolerating compliant of all of her medications. She states that her blood sugars are averaging around 130 mg/dL. Her A1c did come back at 7.4%. She denies any hyper or hypoglycemia. Denies any urinary complaints. Lipids: on rosuvastatin which she states that she was taking and tolerating well. Renal stones/CKD active w/ Renal at [facility] HTN/CAD/CHF She denies any cardiac complaints. She denies any chest pain, shortness of breath. She reports that the edema in bilateral lower extremities is good. She was able to go up and down the stairs without wheezing or shortness of breath. She is also not having any exertional chest pain. Unsure if she is taking ACEI - i will have nurses call pharmacy. She was RX lisinopril 20mg She is taking aspirin daily. She does complain of some senile purpura. Her seasonal allergies are controlled w/ Flonase Worried about her memory, forgetful, not leaving house as much, afraid she might get lost. 6 CIT today 02/08, unable to provide any short term recall Mechanical fall x 2, last 3 days ago, L knee and L shoulder pain. Offered and declined PT and life line. Review of Systems - Musculoskeletal: Reports recent falls, knee scraping, and shoulder strain. - Neurological: Denies getting lost; rep orts fear of forgetting. - Endocrine: Denies recent hypoglycemic episodes, reports high sugars at times. - Respiratory: Denies new or worsening s ymptoms. - Cardiovascular: Denies recent chest pa in or other symptoms. - General: Denies new allergies; patient reports reluctance to leave home due to fear of falls. Physical Exam General: Well developed, well nourished, in no acute distress. Appears stated age. Head: Normocephalic, atraumatic. Eyes: Pupils are equal, round and reactive to light and accommodation. Conjunctivae are clear. Vision grossly normal. Ears: TMs clear AU, EACS WNL Nose: Patent, without discharge. Neck: Supple, no adenopathy or thyromegaly. Breast: Edu on SBE Lungs: Clear to auscultation bilaterally. No rales, rhonchi or wheeze noted. Good air flow in all jones. Heart: Regular rate and rhythm. No murmurs, click, rubs or gallops are noted. Abdomen: Bowel sounds present in all quadrants. The abdomen is soft, nontender, with no masses or organomegaly noted. No hernias are noted. : Deferred. Reviewed MARJORIE recommendations for routine QUALITY CONTROL COORDINATOR Pulses: Peripheral pulses are equal and palpable bilaterally. Extremities: BLE hairless, decreased PP, + varicose veins, no pedal edema bilat,nails thickened, abnormal vibratory and monofilament bilat worse on L great toe; benign exam L shoulder w/ from, neurovasc intact. Resolving ecchymo sis L knee, superficial skin tear w/o infection Neurologic: Gait and station normal. Cranial Nerves 2-12 intact. Motor strength grossly symmetrical and intact. No sensory loss. Balance normal. Skin: No rashes, ulcers, or lesions noted. Turgor is good. Skin color is good. Hair and nails are without abnormalities. Psych: Normal eye contact, affect and mood appropriate, and normal interactions. Patient is alert and appropriate to context. Results: See below Discussion Notes I discussed with the patient the importance of managing her Type 2 Diabetes Mellitus by maintaining her current regimen of metformin 1000 mg twice daily due to insurance constraints on SGLT. We reviewed the risk of falls and recommended physical therapy, though she declined. We explored the use of a life alert system for safety, which she also declined at present. We discussed the significance of keeping medical appointments for mammograms, bone density, and the recommended head CT for evaluating memory concerns. Her concerns about rising costs of diabetes supplies and medications were acknowledged, and we discussed potential alternatives like using a OTC glucometer. Follow-up for medications such as lisinopril was performed. The necessity of a healthcare proxy and the documentation of her preferences for life-sustaining measures were also discussed. Patient was given time to ask questions. All questions were answered to their satisfaction. Assessment and Plan 1. Type 2 Diabetes Mellitus - Metformin continuation. - HbA1c monitoring. - DM Eye exam. 2. Recent Falls with Bruising and Should er Strain - Fall prevention guidance. - Physical therapy suggested & declined - Gentle exercises advised. APAP prn 3. Coronary Artery Disease and Hyperlipi demia - Maintain rosuvastatin regimen. - Active w/ Cards 4. Essential Hypertension and CKD3 - Lisinopril refill for renal protection . ??? She was taking 20mg QD but unsure if shes taking at all I will have my staff call and get a med claim hx She would benefit from this... will update once i hear back from the staff 5. Heart Failure - Continuation of carvedilol. - Active w/ Cards 6. Seasonal Allergies - Continue Flonase as needed. 7. Cognitive impairment - check CT angio head and neck given hx; labs today show b12 def which is new, this could be contributing; start b12 2000 mcg QD. Repeat labs before next visit RTO 6 mo routine fu Patient Instructions - Keep taking metformin as prescribed. - Monitor blood sugar daily. - Use glucometer for cost-effectiveness . - Take rosuvastatin and carvedilol as pr escribed. - Follow up on lab work, mammogram, and bone density test. - Avoid risky activities that could lead to another fall. - Consider future utility of life alert service. - Discuss advanced care planning with suresh ariza. - RTO with labs in 6 mo sooner PRN Consent Patient was informed and verbally consented to the use of an ambient scribe for clinic note documentation during this visit. An additional 40 minutes was spent addressing the problem(s) noted at todays visit. This includes time spent before the visit reviewing the chart, time spent during the visit, and time spent after the visit on documentation reviewing laboratory results, diagnostic imaging, medications, performing a medically necessary evaluation, counseling on diagnoses, care coordination, ordering appropriate tests, ordering appropriate medications, review of tests performed by other providers, reporting test results with the patient, communication with other healthcare providers. [facility] Medical History (Updated 11/24/24 @ 16:17 by Debby Jamison, [facility]) BMI 30.0-30.9,adult CAD (coronary artery disease) CHF (congestive heart failure) CKD (chronic kidney disease) stage 3, GFR 30-59 ml/min Diabetes mellitus type 2 with atherosclerosis of arteries of extremities Diabetic peripheral neuropathy Hx of renal calculi Hyperlipidemia associated with type 2 diabetes mellitus Hypertension Hypertension complicating diabetes Obesity, Class I, BMI 30-34.9 PVD (peripheral vascular disease) Rheumatic fever Surgical History History of colonoscopy (~01/30/15) History of knee replacement Social History Housing: Apartment Alcohol intake: never Patient Tobacco Use Status: Never used Tobacco e-Cigarette/Vaping Use: Never Used Second Hand Smoke Exposure: No service: No Current occupational status: retired Cognitive needs: No Hearing needs: No Vision needs: Yes Questionnaire Medicare Wellness Checkup What [age] What gender do you identify with?: female During the past 4 weeks, how much have you been bothered by emotional problems such as feeling anxious, depressed, irritable, sad or downhearted, and blue?: not at all During the past 4 weeks, has your physical & emotional health limited your social activities with family, friends, neighbors, or groups?: not at all During the past 4 weeks, how much bodily pain have you generally had?: no pain During the past 4 weeks, was someone available to help you if you needed & wanted help?: yes, as much as I wanted During the past 4 weeks, what was the hardest physical activity you could do for at least 2 minutes?: moderate Can you get to places out of walking distance without help? (For eg., can you travel alone on buses, taxis or drive your car?): Yes Can you go shopping for groceries or clothes without someone's help?: Yes Can you prepare your own meals?: Yes Can you do your housework without help?: Yes Because of any health problems, do you need the help of another person with your personal care needs such as eating, bathing, dressing or getting around the house?: No Can you handle your own money without help?: Yes During the past 4 weeks, how would you rate your health in general?: very good During the past 4 weeks how have things been going for you?: pretty well Are you having difficulties driving your car?: no Do you always fasten your seat belt when you are in a car?: yes, usually During past 4 weeks, have you been bothered by the following: never: Falling or dizzy when standing up, Sexual problems?, Trouble eating well?, Teeth or denture problems?, Problems using the telephone? and Tiredness or fatigue? Have you fallen 2 or more times in the past year?: Yes Are you afraid of falling?: Yes Are you a smoker?: no During the past 4 weeks, how many drinks of wine, beer, or other alcoholic beverages did you have?: no alcohol at all Do you exercise for about 20 minutes 3 or more times a week?: yes, some of the time Have you been given information to help with the following?: no: Hazards in your house that might hurt you? and no: Keeping track of your medications? How often do you have trouble taking medicines the way you have been told to take them?: I always take medicine as prescribed How confident are you that you can control & manage most of your health problems?: very confident What is your race?: or origin or descent Activity of Daily Living Bathing - sponge bath, tub bath or shower: receives no assistance (gets in/out by self, if usual bathing means Dressing - getting clothes from closets & drawers, including inner/outer garments & fasteners.: gets clothes & gets completely dressed without help Toileting - going to the 'toilet room' for urine/bowel elimination & cleaning self/arranging clothes: goes to toilet room, cleans self, arranges clothes without help Transfer: moves in & out of bed and chair without help (may use support object) Continence: controls urination/bowel movements completely by self Feeding: feeds self without help Total Score: 0 Information obtained from: patient Using telephone: independent Traveling: independent Shopping: independent Preparing meals: independent Housework: independent Taking medicine: independent Managing money: independent PHQ-9 Over the last 2 weeks, how often have you been bothered by any of the following problems? 1. Little interest or pleasure in doing things: not at all 2. Feeling down, depressed, or hopeless: not at all 3. Trouble falling or staying asleep, or sleeping too much: not at all 4. Feeling tired or having little energy: not at all 5. Poor appetite or overeating: not at all 6. Feeling bad about yourself - or that you are a failure or have let yourself or your family down: not at all 7. Trouble concentrating on things, such as reading the newspaper or watching television: not at all 8. Moving or speaking so slowly that other people could have noticed. Or the opposite - being so fidgety or restless that you have been moving around a lot more than usual: not at all 9. Thoughts that you would be better off or of hurting yourself in some way: not at all Total score: 0 Depression Screening Interpretation: Negative Depression Screening Done: Yes 71354 - PHQ-9 Billing: Yes Source: Developed by Drs. Herve Elias, Kerry Orourke, Emre Bullock and colleagues, with an educational lali from [employer]. Physical Exam Vital Signs: Last Vital Signs Temp 97.1 F 11/24/24 08:17 Pulse 68 11/24/24 08:17 Resp 13 11/24/24 08:17 BP 138/78 11/24/24 08:17 Pulse Ox 98 11/24/24 08:17 Oxygen Delivery Method Room Air 11/24/24 08:17 BMI result Body Mass Index 32.2 Office Procedures Diabetic Foot Exam G9226 - Diabetic Foot Exam Vision Screening Right Eye: 20/30 Left Eye: 20/25 Bilateral: 20/20 Color: Pass [id number] - Vision Screening Results AMB Hemoglobin A1c AMB Hemoglobin A1c 7.4 % Last Edit by Jose Fry MA on 11/24/24 08:27 Results Reviewed Results Reviewed: Laboratory Last Values Hgb A1c (Clinic) 7.4 % (4.0-6.0) H 11/24/24 08:21 11/24/2024 Laboratory Result Units Range Interpretation Provider Comments Sodium Level 141 mmol/L (135-145) Potassium Level 4.2 mmol/L (3.3-5.1) Chloride Level 111 mmol/L (96-108) High Carbon Dioxide Level 18 mmol/L (22-29) Low Anion Gap 16 (12-20) Blood Urea Nitrogen 38 mg/dL (9-16) High Creatinine 1.23 mg/dL (0.5-1.4) Estimated Creatinine Clearance Calc Not Reportable Estimat Glomerular Filtration Rate 42 Random Glucose 162 mg/dL (60-115) High Hemoglobin A1c (Clinic) 7.4 % High Calcium Level 9.0 mg/dL (8.4-10.2) Total Bilirubin 0.5 mg/dL (0.0-1.0) Aspartate Amino Transf (AST/SGOT) 22 U/L (5-31) Alanine Aminotransferase (ALT/SGPT) 13 U/L (0-31) Alkaline Phosphatase 99 U/L (39-117) Total Protein 6.9 g/dL (6.5-8.0) Albumin 4.3 g/dL (3.5-5.0) Triglycerides Level 129 mg/dL (<150) Cholesterol Level 105 mg/dL (<200) LDL Cholesterol, Calculated 33 mg/dL (<100) HDL Cholesterol 47 mg/dL (>40) Vitamin B12 Level 152 pg/mL (200-900) Low Folate 9.1 ng/mL (> or = 4.0) Assessment & Plan Assessment & Plan (1) Encounter for subsequent annual wellness visit (AWV) in Medicare patient: Onset Date: ~11/24/24 Code(s): Z00.00 - Encounter for general adult medical examination without abnormal findings (2) ACP (advance care planning): Code(s): Z71.89 - Other specified counseling (3) Hypertension complicating diabetes: Comment: Goal less than 130/80, on losartan 25 mg p.o. daily, carvedilol 6.25 mg p.o. b.i.d.. Blood pressure at goal. Continue Code(s): E11.59 - Type 2 diabetes mellitus with other circulatory complications; I15.2 - Hypertension secondary to endocrine disorders (4) CHF (congestive heart failure): Comment: 09/2023 Echo Wall Motion Rest Echo Findings The basal inferior and basal inferoseptal segments are akinetic. All other scored wall segments showed normal motion. Right Ventricle Normal right ventricular cavity size and systolic function. Atria The left atrium is mildly dilated. There is no evidence of interatrial shunt. The right atrium is normal in size. Aortic Valve There is mild calcification of the aortic valve. There is no aortic valve stenosis. There is no aortic valve regurgitation. Mitral Valve There is mild anterior and posterior mitral leaflet thickening. There is mild mitral annular calcification. There is trace mitral valve regurgitation. There is no mitral valve stenosis. Pulmonic Valve The pulmonic valve was not well visualized. Tricuspid Valve Likely normal tricuspid valve structure and function. There is trace tricuspid valve regurgitation. The right ventricular systolic pressure is normal. The right ventricular systolic pressure is 22 mmHg. Normal right atrial pressure. There is no evidence of pulmonary hypertension. Great Vessels All visible segments of the aorta are normal in size. There is no dilatation of the ascending aorta measuring 3.30 cm. Venous The inferior vena cava is normal in size and collapses greater than 50% with inspiration. Pericardium/Pleural There is no evidence of pericardial effusion. Code(s): I50.9 - Heart failure, unspecified Qualifiers: Heart failure chronicity: chronic Heart failure type: systolic Qualified Code(s): I50.22 - Chronic systolic (congestive) heart failure (5) CAD (coronary artery disease): Comment: . Code(s): I25.10 - Atherosclerotic heart disease of [place] coronary artery without angina pectoris Qualifiers: Associated angina: without angina Coronary Disease-Associated Artery/Lesion type: [place] artery [place] vs. transplanted heart: [place] heart Qualified Code(s): I25.10 - Atherosclerotic heart disease of [place] coronary artery without angina pectoris (6) PVD (peripheral vascular disease): Comment: 09/2023 normal vascular [place] Code(s): I73.9 - Peripheral vascular disease, unspecified (7) Hyperlipidemia associated with type 2 diabetes mellitus: Comment: LDL goal less than 70. Code(s): E11.69 - Type 2 diabetes mellitus with other specified complication; E78.5 - Hyperlipidemia, unspecified (8) Diabetes mellitus type 2 with atherosclerosis of arteries of extremities: Comment: On metformin ER 1000 mg p.o. b.i.d., We will need to obtain records for diabetic eye exam. Code(s): E11.51 - Type 2 diabetes mellitus with diabetic peripheral angiopathy without gangrene; I70.209 - Unspecified atherosclerosis of [place] arteries of extremities, unspecified extremity (9) Type 2 diabetes mellitus with unspecified complications: Code(s): E11.8 - Type 2 diabetes mellitus with unspecified complications (10) BMI 30.0-30.9,adult: Code(s): Z68.30 - Body mass index [BMI] 30.0-30.9, adult (11) Obesity, Class I, BMI 30-34.9: Code(s): E66.811 - Obesity, class 1 (12) Glaucoma: Comment: Currently managed on latanoprost and Alphagan. We will need to obtain records to further specify her glaucoma condition. Code(s): H40.9 - Unspecified glaucoma Qualifiers: Glaucoma type: unspecified Laterality: unspecified laterality Qualified Code(s): H40.9 - Unspecified glaucoma (13) CKD (chronic kidney disease) stage 3, GFR 30-59 ml/min: Code(s): N18.30 - Chronic kidney disease, stage 3 unspecified Qualifiers: Chronic kidney disease stage 3 subtype: stage 3a (GFR 45-59) Qualified Code(s): N18.31 - Chronic kidney disease, stage 3a (14) Urinary incontinence: Comment: Encouraged hygiene, use of incontinence pads. Code(s): R32 - Unspecified urinary incontinence Qualifiers: Urinary Incontinence type: mixed stress and urge incontinence Qualified Code(s): N39.46 - Mixed incontinence (15) Diabetic peripheral neuropathy: Code(s): E11.42 - Type 2 diabetes mellitus with diabetic polyneuropathy (16) Fall: Code(s): W19.XXXA - Unspecified fall, initial encounter Qualifiers: Encounter type: initial encounter Qualified Code(s): W19.XXXA - Unspecified fall, initial encounter (17) Menopause: Code(s): Z78.0 - Asymptomatic menopausal state (18) Cognitive impairment: Code(s): R41.89 - Other symptoms and signs involving cognitive functions and awareness (19) B12 deficiency: Code(s): E53.8 - Deficiency of other specified B group vitamins Plan . Orders: Orders Vitamin B12 and Folate 6 Months E11.8 - Type 2 diabetes mellitus with unspecified complications, E53.8 - Deficiency of other specified B group vitamins, N18.31 - Chronic kidney disease, stage 3a Hemoglobin A1c 6 Months E11.8 - Type 2 diabetes mellitus with unspecified comp lications, E53.8 - Deficiency of other specified B group vitamins, N18.31 - Chronic kidney disease, stage 3a AMB Hemoglobin A1c Today Z13.9 - Encounter for screening, unspecified MM tomosynthesis screening BI Today Z12.31 - Encounter for screening mammogram for malignant neoplasm of breast XR DEXA axial skeleton Today Z13.820 - Encounter for screening for osteoporosis, Z78.0 - Asymptomatic menopausal state CT angio head neck Today E11.59 - Type 2 diabetes mellitus with other circulatory complications, I15.2 - Hypertension secondary to endocrine disorders, I25.10 - Atherosclerotic heart disease of [place] coronary artery without angina pectoris, I73.9 - Peripheral vascular disease, unspecified, R41.89 - Other symptoms and signs involving cognitive functions and awareness Microalbumin, Random (w Creat) 6 Months E11.8 - Type 2 diabetes mellitus with unspecified complications, E53.8 - Deficiency of other specified B group vitamins, N18.31 - Chronic kidney disease, stage 3a Lipid Panel 6 Months E11.8 - Type 2 diabetes mellitus with unspecified complications, E53.8 - Deficiency of other specified B group vitamins, N18.31 - Chronic kidney disease, stage 3a Medications: New cyanocobalamin (vitamin B-12) 2,000 mcg (2 x 1,000 mcg) PO DAILY 180 caps 2RF Changed From fluticasone propionate 50 mcg/actuation administer into each nostril 1 spray intranasal BID PRN To fluticasone propionate 50 mcg/actuation administer into each nostril 1 spray intranasal BID 16 grams 12RF Refilled metformin ER 1,000 mg (2 x 500 mg) PO BID 360 tabs 1RF 90 days rosuvastatin 20 mg PO DAILY 90 tabs 1RF Patient Instructions: Health screenings for women You should visit your health care provider from time to time, even if you are healthy. The purpose of these visits is to: Screen for medical issues Assess your risk for future medical problems Encourage a healthy lifestyle Update vaccinations and other preventive care services Help you get to know your provider in case of an illness Information Even if you feel fine, you should still see your provider for regular checkups. These visits can help you avoid problems in the future. For example, the only way to find out if you have high blood pressure is to have it checked regularly. High blood sugar and high cholesterol levels also may not have any symptoms in the early stages. A simple blood test can check for these conditions. There are specific times when you should see your provider or receive specific health screenings. The [place] Preventive Services Task Force publishes a list of recommended screenings. Below are screening guidelines for women ages 18 to 39. BLOOD PRESSURE SCREENING Your blood pressure should be checked at least once every 3 to 5 years if: Your blood pressure is in the normal range (top number less than 120 mm Hg and bottom number less than 80 mm Hg) You don't have risk factors for high blood pressure Ask your provider if you need your blood pressure checked more often if: The top number is 120 to 129 mm Hg or the bottom number is 70 to 79 mm Hg You have diabetes, heart disease, kidney problems, are overweight, or have certain other health conditions You have a first-degree relative with high blood pressure You are Black You had high blood pressure during a If the top number is 130 mm Hg or greater or the bottom number is 80 mm Hg or greater, this is considered stage 1 hypertension. Schedule an appointment with your provider to learn how you can reduce your blood pressure. Watch for blood pressure screenings in your area. Ask your provider if you can stop in to have your blood pressure checked. BREAST CANCER SCREENING Experts do not agree about the benefits of breast self-exams in finding breast cancer or saving lives. Talk to your provider about what is best for you. A screening mammogram is not recommended for most women under age 40. Your provider may discuss and recommend mammograms, MRI scans, or ultrasounds if you have an increased risk for breast cancer, such as: A mother or sister who had breast cancer at a young age (most often starting screening earlier than the age the close relative was diagnosed) You carry a high-risk genetic marker CERVICAL CANCER SCREENING Cervical cancer screening should start at age 21 years unless your provider advises otherwise. After the first test: Women ages 21 through 29 should have a Pap test every 3 years. Exoprts do not agree on whether HPV testing is recommended for this age group. Women ages 30 through 65 should be screened with either a Pap test every 3 years or the HPV test every 5 years or both tests every 5 years (called cotesting ). Women who have been treated for precancer (cervical dysplasia) should continue to have Pap tests for 20 years after treatment or until age 65, whichever is longer. If you have had your uterus and cervix removed (total hysterectomy), and you have not been diagnosed with cervical cancer or precancer (high grade cervical neoplasia), you do not need cervical cancer screening. CHOLESTEROL SCREENING Cholesterol screening should begin at: Age 45 for women with no known risk factors for coronary heart disease Age 20 for women with known risk factors for coronary heart disease Repeat cholesterol screening should take place: Every 5 years for women with normal cholesterol levels More often if changes occur in lifestyle (including weight gain and diet) More often if you have diabetes, heart disease, kidney problems, or certain other conditions DIABETES SCREENING You should be screened for diabetes starting at age 35 and then repeated every 3 years if you have no risk factors for diabetes. Screening may need to start earlier and be repeated more often if you have other risk factors for diabetes, such as: You have a first degree relative with diabetes. You are overweight or have obesity. You have high blood pressure, prediabetes, or a history of heart disease. Screening for diabetes should be done if you are planning to become and you are overweight and have other risk factors such as high blood pressure. DENTAL EXAM Go to the dentist once or twice every year for an exam and cleaning. Your dentist will evaluate if you need more frequent visits. EYE EXAM Have an eye exam every 5 to 10 years before age 40. If you have vision problems, have an eye exam every 2 years or more often if recommended by your provider. You should have an eye exam that includes an examination of your retina (back of your eye) at least every year if you have diabetes. IMMUNIZATIONS Commonly needed vaccines include: Flu shot: get one every year. COVID-19 vaccine: ask your provider what is best for you. Tetanus-diphtheria and acellular pertussis (Tdap) vaccine: have one at or after age 19 as one of your tetanus-diphtheria vaccines if you did not receive it as an adolescent. Tetanus-diphtheria: have a booster (or Tdap) every 10 years. Varicella vaccine: receive 2 doses if you never had chickenpox or the varicella vaccine. Hepatitis B vaccine: receive 2, 3, or 4 doses, depending on your exact circumstances. Measles, mumps, and rubella (MMR) vaccine: receive 1 to 2 doses if you are not already immune to MMR. Your provider can tell you if you are immune. Ask your provider about the human papillomavirus (HPV) vaccine if: You have not received the HPV vaccine in the past You have not completed the full vaccine series (you should catch up on this shot) Ask your provider if you should receive other immunizations if you have certain health problems that increase your risk for some diseases such as pneumonia. INFECTIOUS DISEASE SCREENING Women who are sexually active should be screened for chlamydia and gonorrhea up until age 25. Women 25 years and older should be screened for chlamydia and gonorrhea if at high risk. Screening for hepatitis C: All adults ages 18 to 79 should get a one-time test for hepatitis C. people should be screened at every . Screening for human immunodeficiency virus (HIV): All people ages 15 to 65 should get a one-time test for HIV. Depending on your lifestyle and medical history, you may also need to be screened for infections such as syphilis and HIV, as well as other infections. PHYSICAL EXAM All adults should visit their provider from time to time, even if they are healthy. The purpose of these visits is to: Screen for disease Assess your risk of future medical problems Encourage a healthy lifestyle Update your vaccinations and other preventive care services Maintain a relationship with a provider in case of an illness Your height, weight, and BMI should be checked at every exam. During your exam, your provider may ask you about: Depression and anxiety Diet and exercise Alcohol and tobacco use Safety issues, such as using seat belts, smoke detectors, and intimate partner violence Your medicines and risk for interactions SKIN SELF-EXAM Your provider may check your skin for signs of skin cancer, especially if you're at high risk, such as if you: Have had skin cancer before Have close relatives with skin cancer Have a weakened immune system OTHER SCREENING Talk with your provider about colon cancer screening if you have a strong family history of colon cancer or polyps, or if you have had inflammatory bowel disease or polyps yourself. Routine bone density screening of women under 40 is not recommended. Quality Reporting (2020) Adult ([facility] 138/06/05/68) Smoking risk assessment performed?: Yes Patient Tobacco Use Status: Never used Tobacco Depression screening performed: Yes Screen Results: Yes Negative screen Systolic BP not done?: No Diastolic BP not done?: No BMI screening not done: No BMI High - Follow Up: Yes High-plan Sexual Activity Screening ([facility] 153) Sexually active?: Yes Immunizations ([facility] 147, 117) Annual Influenza Vaccine: No (not flu season ) Measles Antibody Test: No Mumps Antibody Test: No Rubella Antibody Test: No Varicella Antibody Test: No Anti Hepatitis A IgG Antigen test: No Anti Hepatitis B Virus Surface Ab test: No Fall Risk Screening ([facility] 139) Last assessed Fall Risk: 11/24/24 Fall risk assessment: 2 + Falls in past year Dementia Assessment ([facility] 149) Cognitive assessment recorded: Yes Assessment of cognition with standardized tool: Yes Depression/Bipolar (159/160/161/177) PHQ-9: Total score: 0 Ophthalmol:Cataracts Visual Acuity (133) Visual acuity exam performed: Yes (see results ) Coding Level of Care Code Medicare Subsequent (G0439) Est Pt Level 5 (44094) Diagnoses Encounter for subsequent annual wellness visit (AWV) in Medicare patient Z00.00 ACP (advance care planning) Z71.89 Hypertension complicating diabetes E11.59; I15.2 Chronic systolic congestive heart failure I50.22 Heart failure chronicity: chronic Heart failure type: systolic Coronary artery disease involving [place] coronary artery of [place] heart without angina pectoris I25.10 Associated angina: without angina Coronary Disease-Associated Artery/Lesion type: [place] artery [place] vs. 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; I70.209 Type 2 diabetes mellitus with unspecified complications E11.8 BMI 30.0-30.9,adult Z68.30 Obesity, Class I, BMI 30-34.9 E66.811 Glaucoma, unspecified glaucoma type, unspecified laterality H40.9 Glaucoma type: unspecified Laterality: unspecified laterality Stage 3a chronic kidney disease N18.31 Chronic kidney disease stage 3 subtype: stage 3a (GFR 45-59) Mixed stress and urge urinary incontinence N39.46 Urinary Incontinence type: mixed stress and urge incontinence Diabetic peripheral neuropathy E11.42 Fall, initial encounter W19.XXXA Encounter type: initial encounter Menopause Z78.0 Cognitive impairment R41.89 B12 deficiency E53.8 CPT Codes Advance Care Planning - Time spent: 1-15 minutes, not on file ([id number]) Diabetic Foot Exam - CPT: G9226 - Diabetic Foot Exam ([id number]) Vision Screening - Vision Screenin - Vision Screening ([id number]) Additional Codes PHQ-9 - 90729 - PHQ-9 Billing: Yes ([id number]) Advance Care Planning Advance Care Planning discussion: Exists, not on file Date of discussion: 11/24/24 Forms completed: Health Care Proxy, MOLST and Living will Time spent: 1-15 minutes, not on file Actual minutes spent: 5
--- OUTSIDE RECORDS SUMMARY | 2024-11-24 08:12 | XMS_ITS | Clinical Summary ---
Author Organization [facility] Address [address] [place] [address] Phone Care Team Providers Care Settlement Processor Name Role Phone Se Ely Primary Care Provider [phone] [phone] Allergies No known active allergies Medications losartan [...] 09/06/2020 Right knee DJD 11/18/2013 Morbid obesity ([facility] V24, [facility] V28) 2013 Overview (04/16/2024): BMI 41.21 on 04/12/13. Type 2 diabetes mellitus wit h eye manifestations ([facility] V24, [facility] V28) 01/03/2011 Overview (04/16/2024): Bilateral nuclear sclerosis. DM (diabetes mellitus) type II uncontrolled with eye manifestation Microalbuminuria 01/03/2011 Type 2 diabetes mellitus wit h diabetic nephropathy, without long-term current use of insulin ([facility] V24, [facility] V28) 01/03/2011 Overview (04/16/2024): Peripheral neuropathy. Mixed [...] dr rhoades KNEE ARTHROSCOPY 02/21/2014 Right PROCEDURE: ID ARTHROSCOPY AID TX SPINE&/FX KNEE W/O FIXJ; COMMENT: Herve Ruelas TOTAL KNEE ARTHROPLASTY PROCEDURE: HISTORICAL TOTAL KNEE REPLACE; COMMENT: right sergio left de COLONOSCOPY 2003 PROCEDURE: HISTORICAL COLONOSCOPY; COMMENT: neg UPPER GASTROINTESTINAL ENDOSCOPY 2003 PROCEDURE: ID UPPER GI ENDOSCOPY PERFORMED; COMMENT: duodenal ulcers and h. pylori infection; rx'd. COLONOSCOPY 2014 PROCEDURE: HISTORICAL COLONOSCOPY; COMMENT: no polyps CATARACT EXTRACTION 08/2020 Right PROCEDURE: HISTORICAL CATARACT REMOVAL BREAST BIOPSY 2015ish Right PROCEDURE: BX BREAST; PERC NEEDLE CORE W/IMAG GUID; COMMENT: rt. breast bx.-benign findings CHOLECYSTECTOMY PROCEDURE: ID LAPAROSCOPY SURG CHOLECYSTECTOMY LITHOTRIPSY 06/03/2023 PROCEDURE: HISTORICAL [...] 12/01/2024 8:30 AM EDT Appointment Radiology Department [address] [address] Health Maintenance Due Date Last Done Comments [...] Breast cancer risk category Low (<15%) Result [facility] Se [facility] IMG XR PROCEDURES Final R esult * Urine Albumin Creatinine Ratio (12/06/2022) Pathologist [facility] Urine Albumin Creatinine Ratio abstracted Result [facility] HEALTH MAINTENANCE Final Result * Annual BMP Blood Test (12/06/2022) [facility] Annual BMP Blood Test abstracted Result [facility] HEALTH MAINTENANCE Final Result * (ABNORMAL) Hemoglobin A1c (12/06/2022) [facility] Hemoglobin A1C 8.1(A) <=6.5 % Blood Venous blood specimen / Unknown Result [facility] LAB BLOOD ORDERABLES Myra l Result * (ABNORMAL) Lipid panel (12/06/2022) [facility] LDL/HDL Ratio 5(A) 0 - 4 [...] bone mineral density by WHO criteria. The [facility] Department of Internal Medicine recommends using National [...] alternative screening schedule based on vy Etienne., [facility] May 02, 2011 for patients with osteopenia [...] bone mineral density by WHO criteria. The [facility] Department of Internal Medicine recommendsusing National Osteoporosis [...] Recently Relevant to Health Maintenance Care Teams Settlement Processor Relationship Specialty Start Date End Date Se Ely, TERESSA PCP - General Internal Medicine 09/06/20
--- OUTSIDE RECORDS SUMMARY | 2024-11-24 08:12 | XMS_ITS | Clinical Summary ---
Author Organization [facility] Facility Address [address] [place] [address] Care Team Providers Care Mmd Unit Teacher Name Role Phone Unavailable Primary Care Provider [...]
[2024-11-24 08:17] VITALS: BP 138/78; PULSE 68; RESP 13; TEMP 36.2; O2SAT 98; BMI 32.2
== END 2024-11-24 09:06 | disposition home or self-care (01) ==
LOC: HO.HMCFM 08:09
PROVIDERS: PCP Nurse Practitioner Family; Visit Provider Nurse Practitioner Family
DX: Z00.00 Encounter for general adult medical examination without abnormal findings (principal); E11.59 Type 2 diabetes mellitus with other circulatory complications; I50.22 Chronic systolic (congestive) heart failure; E11.69 Type 2 diabetes mellitus with other specified complication; E11.51 Type 2 diabetes mellitus with diabetic peripheral angiopathy without gangrene; N18.31 Chronic kidney disease, stage 3a; E11.42 Type 2 diabetes mellitus with diabetic polyneuropathy; I15.2 Hypertension secondary to endocrine disorders; I73.9 Peripheral vascular disease, unspecified; E78.5 Hyperlipidemia, unspecified; Z68.30 Body mass index [BMI] 30.0-30.9, adult; Z01.00 Encounter for examination of eyes and vision without abnormal findings

== ENCOUNTER 2024-11-24 08:09 | Outpatient (REF) | payer OTHER, SELFPAY ==
[2024-11-24 11:52] LABS: Alanine Aminotransferase 13 U/L (0-31); Albumin Level 4.3 g/dL (3.5-5.0); Alkaline Phosphatase 99 U/L (39-117); Anion Gap 16 (12-20); Aspartate Amino Transferase 22 U/L (5-31); Blood Urea Nitrogen 38 mg/dL (9-16); Calcium 9.0 mg/dL (8.4-10.2); Carbon Dioxide 18 mmol/L (22-29); Chloride 111 mmol/L (96-108); Cholesterol 105 mg/dL (<200); Estimated Glomerular Filt Rate 42; HDL Cholesterol 47 mg/dL (>40); Potassium 4.2 mmol/L (3.3-5.1); Sodium 141 mmol/L (135-145); Total Protein 6.9 g/dL (6.5-8.0); Triglycerides 129 mg/dL (<150)
[2024-11-24 12:26] LABS: Folate 9.1 ng/mL (> or = 4.0); Vitamin B12 152 pg/mL (200-900)
== END 2024-11-24 08:10 | disposition home or self-care (01) ==
LOC: HO.WFDLDS 08:09
PROVIDERS: PCP Nurse Practitioner Family; Visit Provider Nurse Practitioner Family
DX: Z00.00 Encounter for general adult medical examination without abnormal findings (principal); E11.59 Type 2 diabetes mellitus with other circulatory complications; I15.2 Hypertension secondary to endocrine disorders; I13.0 Hypertensive heart and chronic kidney disease with heart failure and stage 1 through stage 4 chronic kidney disease, or unspecified chronic kidney disease; E11.22 Type 2 diabetes mellitus with diabetic chronic kidney disease; I50.22 Chronic systolic (congestive) heart failure; N18.31 Chronic kidney disease, stage 3a; I25.10 Atherosclerotic heart disease of native coronary artery without angina pectoris; E11.51 Type 2 diabetes mellitus with diabetic peripheral angiopathy without gangrene; I70.209 Unspecified atherosclerosis of native arteries of extremities, unspecified extremity; E11.69 Type 2 diabetes mellitus with other specified complication; H40.9 Unspecified glaucoma; N39.46 Mixed incontinence; E11.42 Type 2 diabetes mellitus with diabetic polyneuropathy; W19.XXXA Unspecified fall, initial encounter; E78.5 Hyperlipidemia, unspecified; R41.89 Other symptoms and signs involving cognitive functions and awareness; E53.8 Deficiency of other specified B group vitamins; E66.811 Obesity, class 1; Z68.30 Body mass index [BMI] 30.0-30.9, adult; Z13.89 Encounter for screening for other disorder; Z71.89 Other specified counseling; Z78.0 Asymptomatic menopausal state; Z12.31 Encounter for screening mammogram for malignant neoplasm of breast; Z13.820 Encounter for screening for osteoporosis; Z79.84 Long term (current) use of oral hypoglycemic drugs
CPT/HCPCS: 36415; 80053; 80061; 82607; 82746; 83036; 96127

== ENCOUNTER 2025-02-04 12:42 | Outpatient (REF) | payer OTHER, SELFPAY ==
--- NOTE | ~2025-02-04 | MM_ITS ---
EXAMINATION: DXA BONE DENSITY AXIAL HISTORY: Z13.820 - Encounter for screening for osteoporosis TECHNIQUE: [employer]ights Dual energy absorptiometry (DEXA) of the lumbar spine, total left hip, and femoral neck was performed. COMPARISON: There are no prior studies for comparison. FINDINGS: The bone mineral density of the lumbar spine is 2.085 g/cm2, corresponding to a T-score of 7.5, and a Z-score of 8.8. This is indicative of normal bone mineral density. The bone mineral density of the left total hip is 1.251 g/cm2, corresponding to a T-score of 1.9, and a Z-score of 3.4. This is indicative of normal bone mineral density. The bone mineral density of the left femoral neck is 0.347 g/cm2, corresponding to a T-score of 2.2, and a Z-score of 3.9. This is indicative of normal bone mineral density. MM/XR DEXA axial skeleton IMPRESSION: Based on bone mineral density, and according to World Health Organization (WHO) criteria, the diagnosis is consistent with normal bone mineral density. Statistically, 68% of repeat scans fall within 1 SD (+/- 0.010 g/cm2 for AP spine L1-L4) and 1 SD (+/- 0.012 g/cm2 for femur total) FRAX is a trademark of the [employer] [facility] [employer], a World Health Organization (WHO) Collaborating Center. Electronically signed by: Herve Darnell MD 02/04/2025 01:38 PM EDT
--- NOTE | ~2025-02-04 | MM_ITS ---
EXAMINATION: MM SCREENING DIGITAL BREAST TOMOSYNTHESIS, BILATERAL CLINICAL INFORMATION: Screening. Asymptomatic. COMPARISON: Mammography: Comparison is made with available priors TECHNIQUE: Digital breast mammography with tomosynthesis is performed in both the craniocaudal and mediolateral oblique views along with computer-aided detection (CAD). FINDINGS: There are scattered areas of fibroglandular density. Bilateral scattered dystrophic and coarse calcifications are stable appearing. Bilateral circumscribed oval masses which wax and wane consistent with benign fibrocystic changes. There are no significant masses, abnormal calcifications, or other abnormalities. MM/MM tomosynthesis screening BI IMPRESSION: No mammographic evidence of malignancy. ASSESSMENT: BI-RADS Category 2: Benign RECOMMENDATION: Routine annual mammography screening. 1 year F/U This examination should not preclude the clinical evaluation of a suspicious palpable abnormality. This patient's information was entered into a reminder system with a target due date for their next mammogram. Electronically signed by: Heather Mclean DO 02/08/2025 09:24 AM EDT
--- OUTSIDE RECORDS SUMMARY | 2025-02-04 14:38 | XMS_ITS | Clinical Summary ---
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 Type 2 diabetes mellitus wit h eye manifestations ([facility] V24, [facility] V28) 01/03/2011 Overview (04/16/2024): Bilateral nuclear sclerosis. DM (diabetes mellitus) type II uncontrolled with eye manifestation Microalbuminuria 01/03/2011 Type 2 diabetes mellitus wit h diabetic nephropathy, without long-term current use of insulin ([facility] V24, [facility] V28) 01/03/2011 Overview (04/16/2024): Peripheral neuropathy. Mixed hyperlipidemia 01/12/2010 Obesity, unspecified 03/03/2009 Duodenal ulcer due to Helicobacter pylori 2008 Overview (04/16/2024): Treated for h pylori 2003. Spinal stenosis, lumbar dom on, without neurogenic claudication 09/13/2008 Essential hypertension, benign 05/24/2005 Immunizations Immunization Administration Dates Next Due Influenza Quadravalent, MDCK [...] 12/06/2022 10:56 AM EDT Plan of Treatment Health Maintenance Due Date [...] Hypertension/CHF/CAD Annual BMP Blood Test 12/07/2023 12/06/2022 Medicare Annual Wellness Visit 12/07/2023 12/06/2022 Depression Screening 04/14/2024 Influenza Vaccine (#1) 2024 , 02/12/2019, 03/17/2018, Additional history exists Cholesterol Screening (Lipid Panel) 12/07/2027 12/06/2022 DTaP,Tdap,and Td Vaccines (3 - Td or Tdap) 02/12/2029 02/12/2019, 09/13/2008 Osteoporosis Screening (Bone Density Screening) 11/20/2032 11/20/2022, 04/27/2020, 10/07/2017 Hepatitis C Screening Completed 04/08/2013 Pneumococcal Vaccine: 50+ Years Completed 10/19/2015, 08/29/2014, 09/13/2008 Breast Cancer Screening Discontinued 11/27/19, 11/27/2023, 11/20/2022, Additional history exists HIB Vaccines [...] cancer risk category Low (<15%) Result [facility] Se [facility] IMG XR PROCEDURES Final R esult * Urine Albumin Creatinine Ratio (12/06/2022) [facility] Urine Albumin Creatinine Ratio abstracted Result [facility] HEALTH MAINTENANCE Final Result * Annual BMP Blood Test (12/06/2022) [facility] Annual BMP Blood Test abstracted Result [facility] HEALTH MAINTENANCE Final Result * (ABNORMAL) Hemoglobin A1c (12/06/2022) [facility] Hemoglobin A1C 8.1(A) <=6.5 % Blood Venous blood specimen / Unknown Result [facility] LAB BLOOD ORDERABLES Myra l Result * (ABNORMAL) Lipid panel (12/06/2022) [facility] LDL/HDL Ratio 5(A) 0 - 4 Triglycerides 321(A) 0 - 150 mg/dL Cholesterol 231(A) 0 - 200 mg/dL HDL 51 >=40 mg/dL LDL Cholesterol 116(A) 0 - 100 mg/dL Blood Venous blood specimen / Unknown Result [facility] LAB BLOOD ORDERABLES Myra l Result * [...] bone mineral density by WHO criteria. The [facility] Department of Internal Medicine recommends using [...] alternative screening schedule based on vy Etienne., [facility] May 02, 2011 for patients with [...] bone mineral density by WHO criteria. The [facility] Department of Internal Medicine recommendsusing National [...] FRAX. Optional alternative screening schedule based on fanta Etienne al., NEJMJanuary 2011 for patients with osteopenia (based on hip BMD T-score) is as follows: * advanced osteopenia (T scores -2.00 to -2.49), BMD testing every year * moderate osteopenia (T scores -1.50 to -1.99), BMD testing every 5years mild osteopenia or normal BMD (T scores -1.50 and higher), BMD testingevery 15 years Se [facility]ON [facility] DXA PROCEDURES Final Result * Hepatitis C Screening (04/08/2013) Hepatitis C Screening abstracted us Historical Provider MD HEALTH MAINTENANCE Final Result from Last 3 Months or Most Recently Relevant to Health Maintenance Insurance Care Teams Hob Mill Operator Relationship Specialty Start Date End Date Se Ely [place] PCP - General Internal Medicine 09/06/20
--- OUTSIDE RECORDS SUMMARY | 2025-02-04 14:38 | XMS_ITS | Clinical Summary ---
Author Organization [facility] Address [address] [place] [address] Care Team Providers Care Firmware Engineer Name Role Phone Unavailable Primary Care [...]
== END 2025-02-04 12:43 | disposition home or self-care (01) ==
LOC: HO.MAMMO 12:42
PROVIDERS: PCP Nurse Practitioner Family; Visit Provider Nurse Practitioner Family
DX: Z12.31 Encounter for screening mammogram for malignant neoplasm of breast (principal); Z13.820 Encounter for screening for osteoporosis; Z78.0 Asymptomatic menopausal state
CPT/HCPCS: 77063; 77067; 77080

== ENCOUNTER → 2025-02-04 13:30 | Outpatient (BNV) | payer OTHER, SELFPAY | PROVIDERS: PCP Nurse Practitioner Family; Visit Provider Radiology Diagnostic Radiology | DX: E28.39 Other primary ovarian failure (principal) | CPT/HCPCS: 77080 ==

== ENCOUNTER 2025-03-07 13:26 | Outpatient (REF) | payer OTHER, SELFPAY ==
--- NOTE | ~2025-03-07 | CT_ITS ---
CLINICAL HISTORY: E11.59 - Type 2 diabetes mellitus with other circulatory complications Exam: Unenhanced CT brain, and contrast-enhanced CTA head and neck with multiplanar reformats. Comparison: None. Findings: CT head without contrast: No intracranial mass, midline shift, hydrocephalus, or acute hemorrhage. No CT evidence of acute ischemia. Visualized paranasal sinuses and mastoid air cells normal. Orbits unremarkable. No skull fracture. CTA head: There is good opacification of the bilateral anterior and posterior intracranial arterial circulations. No large vessel occlusion or significant intracranial arterial stenoses. No definable truncation of flow. No evidence of aneurysm or vascular malformation. Evaluation for venous thrombosis is limited by bolus timing although there is no gross evidence of venous thrombosis. No enhancing parenchymal lesions. CTA neck: Aortic arch reveals mild calcific athero sclerosis. Common and internal carotid arteries are patent bilaterally. Vertebral arteries are patent bilaterally. No occlusion or hemodynamically significant stenoses. No evidence of dissection. Visualized pulmonary apices are clear. No neck masses or adenopathy. No destructive osseous lesions. Impression: 1. No acute intracranial abnormalities. 2. Unremarkable appearing CTA of the head and neck. This document has been electronically signed by: Lico Hightower MD on 03/08/2025 16:19:08
[2025-03-07] MEDS: iohexoL 350 MG/ML 100 ML INFUS..BTL 70 ML IV (15:22)
[2025-03-07 17:14] LABS: Creatinine POC 1.3 mg/dL (0.5-1.4); GFR POC 41
--- OUTSIDE RECORDS SUMMARY | 2025-03-07 18:08 | XMS_ITS | Clinical Summary ---
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 Type 2 diabetes mellitus wit h eye manifestations ([facility] [place] V24, [facility] V28) 01/03/2011 Overview (04/16/2024): Bilateral nuclear sclerosis. DM (diabetes mellitus) type II uncontrolled with eye manifestation Microalbuminuria 01/03/2011 Type 2 diabetes mellitus wit h diabetic nephropathy, without long-term current use of insulin ([facility] V24, [facility] V28) 01/03/2011 Overview (04/16/2024): Peripheral neuropathy. Mixed [...] dr rhoades KNEE ARTHROSCOPY 02/21/2014 Right PROCEDURE: MA ARTHROSCOPY AID TX SPINE&/FX KNEE W/O FIXJ; COMMENT: Herve Ruelas TOTAL KNEE ARTHROPLASTY PROCEDURE: HISTORICAL TOTAL KNEE REPLACE; COMMENT: right sergio left de COLONOSCOPY 2003 PROCEDURE: HISTORICAL COLONOSCOPY; COMMENT: neg UPPER GASTROINTESTINAL ENDOSCOPY 2003 PROCEDURE: MA UPPER GI ENDOSCOPY PERFORMED; COMMENT: duodenal ulcers and h. pylori infection; rx'd. COLONOSCOPY 2014 PROCEDURE: HISTORICAL COLONOSCOPY; COMMENT: no polyps CATARACT EXTRACTION 08/2020 Right PROCEDURE: HISTORICAL CATARACT REMOVAL BREAST BIOPSY 2015ish Right PROCEDURE: BX BREAST; PERC NEEDLE CORE W/IMAG GUID; COMMENT: rt. breast bx.-benign findings CHOLECYSTECTOMY PROCEDURE: MA LAPAROSCOPY SURG CHOLECYSTECTOMY LITHOTRIPSY 06/03/2023 PROCEDURE: HISTORICAL [...] Breast cancer risk category Low (<15%) Result [facility] Se [place] IMG XR PROCEDURES Final R esult * Urine Albumin Creatinine Ratio (12/06/2022) [facility] Urine Albumin Creatinine Ratio abstracted Result [facility] HEALTH MAINTENANCE Final Result * Annual BMP Blood Test (12/06/2022) [facility] Annual BMP Blood Test abstracted Result [facility] HEALTH MAINTENANCE Final Result * (ABNORMAL) Hemoglobin A1c (12/06/2022) [facility] Hemoglobin A1C 8.1(A) <=6.5 % Blood Venous blood specimen / Unknown Result [facility] LAB BLOOD ORDERABLES Myra l Result * (ABNORMAL) Lipid panel (12/06/2022) [facility] LDL/HDL Ratio 5(A) 0 - 4 Triglycerides 321(A) 0 - 150 mg/dL Cholesterol 231(A) 0 - 200 mg/dL HDL 51 >=40 mg/dL LDL Cholesterol 116(A) 0 - 100 mg/dL Blood Venous blood specimen / Unknown Result [facility] LAB BLOOD ORDERABLES Myra l Result * [...] bone mineral density by WHO criteria. [facility] Department of Internal Medicine recommends [...] alternative screening schedule based on vy Etienne., [facility] May 02, 2011 for patients [...] bone mineral density by WHO criteria. [facility] Department of Internal Medicine recommendsusing [...] higher), BMD testingevery 15 years [facility] [place] [facility] [place] PROCEDURES Final Result * Hepatitis C Screening (04/08/2013) Hepatitis C Screening abstracted us Historical Provider MD HEALTH MAINTENANCE Final Result from Last 3 Months or Most Recently Relevant to Health Maintenance Insurance Care Teams Olive Knocker Relationship Specialty Start Date End Date Se [place] PCP - General Internal Medicine 09/06/20
== END 2025-03-07 13:27 | disposition home or self-care (01) ==
LOC: HO.CT 13:26
PROVIDERS: PCP Nurse Practitioner Family; Visit Provider Nurse Practitioner Family
DX: E11.59 Type 2 diabetes mellitus with other circulatory complications (principal); I15.2 Hypertension secondary to endocrine disorders; I73.9 Peripheral vascular disease, unspecified; R41.89 Other symptoms and signs involving cognitive functions and awareness; I25.10 Atherosclerotic heart disease of native coronary artery without angina pectoris
CPT/HCPCS: 70496; 70498; 82565; Q9967

== ENCOUNTER → 2025-03-07 13:29 | Outpatient (BNV) | payer OTHER, SELFPAY | PROVIDERS: PCP Nurse Practitioner Family; Visit Provider Radiology Diagnostic Radiology | DX: I66.23 Occlusion and stenosis of bilateral posterior cerebral arteries (principal); R41.89 Other symptoms and signs involving cognitive functions and awareness | CPT/HCPCS: 70496; 70498 ==